=== PATIENT | male | born 1945 | race Caucasian/White ===

== ENCOUNTER 2017-09-07 15:43 | Emergency (ER) | payer MEDICARE, OTHER ==
[~2017-09-07] VITALS: Ht 170.2 cm; Wt 77.1 kg
[~2017-09-07 15:43] MED LIST: ALBU90OI INH; AZIT500 PO; Augmentin 875-1 EACH PO; Bactrim Ds Tab1 EACH PO; CYCL10 PO; DOCU100 PO; HYDR1TAB94 PO; Norco 5-325 Ta1 EACH PO; PANT40 PO; Percocet 5-3251 EACH PO; Vibramycin100 MG PO
[2017-09-07] MEDS ORDERED: ATHLETE S FOOT TOP (18:03)
[2018-01-10] MEDS ORDERED: ALBU90OI INH (10:02)
[2018-01-10] MEDS ORDERED: CHOL10002 PO (10:04)
[2018-02-10] MEDS ORDERED: Prednisone20 MG PO (19:08)
[2018-02-10] MEDS ORDERED: Norco 5-325 Ta1 EACH PO (19:08)
[2018-05-22] MEDS ORDERED: META800 (17:01)
[2018-05-22] MEDS ORDERED: LISI20 PO (17:02)
[2018-05-22] MEDS ORDERED: Prinivil10 MG PO (18:05)
[2018-06-16] MEDS ORDERED: ASPI81CH PO (19:44)
[2018-06-16] MEDS ORDERED: CELE100 PO (19:45)
[2018-06-16] MEDS ORDERED: Percocet 5-3251 EACH PO (19:53)
[2018-07-02] MEDS ORDERED: DOCU100 (16:55)
== END 2017-09-07 18:04 | disposition home or self-care (01) ==
LOC: ER 15:43
DX: B35.3 Tinea pedis (principal); F17.200 Nicotine dependence, unspecified, uncomplicated
CPT/HCPCS: 73630; 99283

== ENCOUNTER 2017-12-13 14:50 | Emergency (ER) | payer MEDICARE, OTHER ==
[~2017-12-13] VITALS: Ht 170.2 cm; Wt 68.0 kg
[~2017-12-13 14:50] MED LIST changes: +ATHLETE S FOOT TOP
[2017-12-13] MEDS ORDERED: IBUP600 PO (15:43)
[2017-12-13] MEDS ORDERED: Bactrim Ds Tab1 EACH PO (15:43)
== END 2017-12-13 15:49 | disposition home or self-care (01) ==
LOC: ER 14:50
DX: L02.412 Cutaneous abscess of left axilla (principal); Z87.891 Personal history of nicotine dependence
CPT/HCPCS: 10061; 99283

== ENCOUNTER 2018-01-12 07:20 | Day surgery (SDC) | payer MEDICARE, OTHER ==
[~2018-01-12] VITALS: Ht 170.2 cm; Wt 62.6 kg
[~2018-01-12 07:20] MED LIST changes: +CHOL10002 PO; +IBUP600 PO
== END 2018-01-12 23:00 | disposition home or self-care (01) ==
LOC: ORSCMMR 07:20 → ORD 10:00 → ORSCMMR 23:00
PROVIDERS: Surgery
PROC: 0YU50JZ Supplement Right Inguinal Region with Synthetic Substitute, Open Approach (ICD-10-PCS; principal; 2018-01-12 10:00)
DX: K40.90 Unilateral inguinal hernia, without obstruction or gangrene, not specified as recurrent (principal); Z87.891 Personal history of nicotine dependence; Z79.899 Other long term (current) drug therapy
CPT/HCPCS: 93005; 93010; C1781; J0690; J2250; J2370; J3010; J7120

== ENCOUNTER 2018-03-21 02:00 | Emergency (ER) | payer MEDICARE, OTHER ==
[~2018-03-21] VITALS: Ht 172.7 cm; Wt 63.5 kg
[~2018-03-21 02:00] MED LIST changes: +Prednisone20 MG PO
[2018-03-21 02:32] LABS: BASOPHILS ABSOLUTE AUTO 0.07 K/mm3 (0.00-0.23); BASOPHILS PERCENT AUTO 1 % (0-2); EOSINOPHILS ABSOLUTE AUTO 0.37 K/mm3 (0.00-0.68); EOSINOPHILS PERCENT AUTO 3 % (0-6); Hematocrit 41.2 % (37.0-53.0); Hemoglobin 14.1 g/dL (13.5-17.5); IMMATURE GRAN ABSOLUTE AUTO 0.07 K/mm3 (0.00-0.10); IMMATURE GRAN PERCENT AUTO 1 % (0-1); LYMPHOCYTES ABSOLUTE AUTO 3.06 K/mm3 (0.84-5.20); LYMPHOCYTES PERCENT AUTO 22 % (21-46); MONOCYTES ABSOLUTE AUTO 1.41 K/mm3 (0.16-1.47); MONOCYTES PERCENT AUTO 10 % (4-13); Mean Corpuscular HGB 29.5 pg (26.0-34.0); Mean Corpuscular HGB Conc 34.2 g/dL (31.5-36.5); Mean Corpuscular Volume 86 fL (80-100); Mean Platelet Volume 9.7 fL (9.1-12.4); NEUTROPHILS PERCENT AUTO 64 % (41-73); Platelet Count 322 K/mm3 (150-400); RDW Coefficient Variation 14.5 % (11.7-14.2); RDW Standard Deviation 46.2 fL (35.1-46.3); Red Blood Cell Count 4.78 M/mm3 (4.30-5.90); White Blood Cell Count 13.68 K/mm3 (4.00-11.30)
[2018-03-21 02:55] LABS: Alanine Aminotransfer (ALT/SGP 17 U/L (12-78); Albumin, Blood 3.7 g/dL (3.4-5.0); Albumin/Globulin Ratio 1.2 (0.8-1.8); Alk Phos 92 U/L (50-136); Anion Gap 9 mmol/L (6-16); Aspartate Aminotrans (AST/SGOT 15 U/L (12-37); Bilirubin, Total 0.8 mg/dL (0.1-1.0); Blood Urea Nitrogen 16 mg/dL (8-24); CO2, Blood 25 mmol/L (21-32); Chloride, Blood 105 mmol/L (98-108); Globulin, Blood 3.2 g/dL (2.2-4.0); Glomerular Filtration Rate >60 (60-); Glucose, Blood 96 mg/dL (70-99); Potassium, Blood 3.6 mmol/L (3.5-5.5); Sodium, Blood 139 mmol/L (136-145); Total Protein, Blood 6.9 g/dL (6.4-8.2); Troponin I <0.015 ng/mL (0.000-0.040)
[2018-03-21] MEDS ORDERED: COMBIVENT RESPIM4 GM (02:55)
== END 2018-03-21 04:38 | disposition home or self-care (01) ==
LOC: ER 02:00
PROVIDERS: Emergency Medicine
DX: J44.1 Chronic obstructive pulmonary disease with (acute) exacerbation (principal); Z79.899 Other long term (current) drug therapy; Z87.891 Personal history of nicotine dependence
CPT/HCPCS: 36415; 71046; 80053; 84484; 85025; 93005; 93010; 99285-25

== ENCOUNTER 2018-05-27 10:07 | Emergency (ER) | payer MEDICARE, OTHER ==
[~2018-05-27] VITALS: Ht 170.2 cm; Wt 65.8 kg
[~2018-05-27 10:07] MED LIST changes: +COMBIVENT RESPIM4 GM; +LISI20; +META800; +Prinivil10 MG PO
[2018-05-27] MEDS ORDERED: Bactrim Ds Tab1 EACH PO (10:48)
[2018-05-27] MEDS ORDERED: Keflex500 MG PO (10:48)
== END 2018-05-27 10:55 | disposition home or self-care (01) ==
LOC: ER 10:07
DX: L03.211 Cellulitis of face (principal); I10 Essential (primary) hypertension; Z87.891 Personal history of nicotine dependence; Z79.899 Other long term (current) drug therapy
CPT/HCPCS: 99283

== ENCOUNTER 2018-06-06 18:51 | Emergency (ER) | payer MEDICARE, OTHER ==
[~2018-06-06] VITALS: Ht 170.2 cm; Wt 65.8 kg
[~2018-06-06 18:51] MED LIST changes: +Keflex500 MG PO; -LISI20; +LISI20 PO
[2018-06-06 19:29] LABS: BASOPHILS ABSOLUTE AUTO 0.07 K/mm3 (0.00-0.23); BASOPHILS PERCENT AUTO 1 % (0-2); EOSINOPHILS ABSOLUTE AUTO 0.28 K/mm3 (0.00-0.68); EOSINOPHILS PERCENT AUTO 3 % (0-6); Hematocrit 39.1 % (37.0-53.0); Hemoglobin 13.4 g/dL (13.5-17.5); IMMATURE GRAN ABSOLUTE AUTO 0.04 K/mm3 (0.00-0.10); IMMATURE GRAN PERCENT AUTO 0 % (0-1); LYMPHOCYTES ABSOLUTE AUTO 1.44 K/mm3 (0.84-5.20); LYMPHOCYTES PERCENT AUTO 15 % (21-46); MONOCYTES ABSOLUTE AUTO 1.08 K/mm3 (0.16-1.47); MONOCYTES PERCENT AUTO 11 % (4-13); Mean Corpuscular HGB 29.8 pg (26.0-34.0); Mean Corpuscular HGB Conc 34.3 g/dL (31.5-36.5); Mean Corpuscular Volume 87 fL (80-100); Mean Platelet Volume 8.7 fL (9.1-12.4); NEUTROPHILS ABSOLUTE AUTO 6.75 K/mm3 (1.96-9.15); NEUTROPHILS PERCENT AUTO 70 % (41-73); Platelet Count 416 K/mm3 (150-400); RDW Coefficient Variation 14.6 % (11.7-14.2); RDW Standard Deviation 46.8 fL (35.1-46.3); White Blood Cell Count 9.66 K/mm3 (4.00-11.30)
[2018-06-06 19:53] LABS: Alanine Aminotransfer (ALT/SGP 23 U/L (12-78); Albumin, Blood 3.6 g/dL (3.4-5.0); Alk Phos 101 U/L (50-136); Anion Gap 7 mmol/L (6-16); Aspartate Aminotrans (AST/SGOT 16 U/L (12-37); Bilirubin, Total 0.3 mg/dL (0.1-1.0); Blood Urea Nitrogen 15 mg/dL (8-24); Bun/Creatinine Ratio 17.2 (12.0-20.0); CO2, Blood 24 mmol/L (21-32); Chloride, Blood 103 mmol/L (98-108); Creatinine, Blood 0.87 mg/dL (0.60-1.20); Globulin, Blood 3.5 g/dL (2.2-4.0); Glomerular Filtration Rate >60 (60-); Glucose, Blood 108 mg/dL (70-99); Potassium, Blood 4.3 mmol/L (3.5-5.5); Sodium, Blood 134 mmol/L (136-145); Total Protein, Blood 7.1 g/dL (6.4-8.2)
[2018-06-06] MEDS ORDERED: Norco 7.5-3251 EACH PO (22:56)
[2018-06-06] MEDS ORDERED: ASPI325 PO (22:56)
== END 2018-06-06 23:39 | disposition home or self-care (01) ==
LOC: ER 18:51
PROVIDERS: Physician Assistant
DX: I77.9 Disorder of arteries and arterioles, unspecified (principal); J44.9 Chronic obstructive pulmonary disease, unspecified; Z87.891 Personal history of nicotine dependence; Z79.899 Other long term (current) drug therapy; Z79.51 Long term (current) use of inhaled steroids
CPT/HCPCS: 36415; 73630; 80053; 85025; 93926; 96374; 99284-25; J3010

== ENCOUNTER 2018-07-13 08:20 | Emergency (ER) | payer MEDICARE, OTHER ==
[~2018-07-13] VITALS: Ht 170.2 cm; Wt 61.2 kg
[~2018-07-13 08:20] MED LIST changes: +ASPI325 PO; +ASPI81CH PO; +CELE100 PO; +DOCU100; +Norco 7.5-3251 EACH PO
[2018-07-13] MEDS ORDERED: OXYC5 (08:37)
[2018-07-13] MEDS ORDERED: CELE100 PO (08:37)
[2018-07-13] MEDS ORDERED: Prinivil10 MG PO (08:37)
[2018-07-13] MEDS ORDERED: TAMS.4ER PO (08:55)
[2018-07-13 09:02] LABS: BASOPHILS ABSOLUTE AUTO 0.06 K/mm3 (0.00-0.23); BASOPHILS PERCENT AUTO 1 % (0-2); EOSINOPHILS ABSOLUTE AUTO 0.25 K/mm3 (0.00-0.68); EOSINOPHILS PERCENT AUTO 2 % (0-6); Hematocrit 37.5 % (37.0-53.0); Hemoglobin 12.3 g/dL (13.5-17.5); IMMATURE GRAN ABSOLUTE AUTO 0.05 K/mm3 (0.00-0.10); IMMATURE GRAN PERCENT AUTO 0 % (0-1); LYMPHOCYTES ABSOLUTE AUTO 1.64 K/mm3 (0.84-5.20); LYMPHOCYTES PERCENT AUTO 14 % (21-46); MONOCYTES ABSOLUTE AUTO 0.81 K/mm3 (0.16-1.47); MONOCYTES PERCENT AUTO 7 % (4-13); Mean Corpuscular HGB 29.8 pg (26.0-34.0); Mean Corpuscular HGB Conc 32.8 g/dL (31.5-36.5); Mean Corpuscular Volume 91 fL (80-100); NEUTROPHILS ABSOLUTE AUTO 8.56 K/mm3 (1.96-9.15); NEUTROPHILS PERCENT AUTO 75 % (41-73); Platelet Count 445 K/mm3 (150-400); RDW Coefficient Variation 15.3 % (11.7-14.2); Red Blood Cell Count 4.13 M/mm3 (4.30-5.90); White Blood Cell Count 11.37 K/mm3 (4.00-11.30)
[2018-07-13 09:16] LABS: Alanine Aminotransfer (ALT/SGP 20 U/L (12-78); Albumin, Blood 3.2 g/dL (3.4-5.0); Albumin/Globulin Ratio 0.9 (0.8-1.8); Alk Phos 94 U/L (50-136); Anion Gap 8 mmol/L (6-16); Aspartate Aminotrans (AST/SGOT 19 U/L (12-37); Bilirubin, Total 0.5 mg/dL (0.1-1.0); Blood Urea Nitrogen 10 mg/dL (8-24); Bun/Creatinine Ratio 12.9 (12.0-20.0); CO2, Blood 27 mmol/L (21-32); Chloride, Blood 105 mmol/L (98-108); Creatinine, Blood 0.78 mg/dL (0.60-1.20); Globulin, Blood 3.5 g/dL (2.2-4.0); Glomerular Filtration Rate >60 (60-); Glucose, Blood 105 mg/dL (70-99); Potassium, Blood 4.2 mmol/L (3.5-5.5); Sodium, Blood 140 mmol/L (136-145); Total Protein, Blood 6.7 g/dL (6.4-8.2)
[2018-07-13] MEDS ORDERED: Bactrim Ds Tab1 EACH PO (09:28)
[2018-07-13] MEDS ORDERED: Mupirocin22 GM TOP (09:28)
== END 2018-07-13 10:07 | disposition home or self-care (01) ==
LOC: ER 08:20
PROVIDERS: Physician Assistant
DX: T81.30XA Disruption of wound, unspecified, initial encounter (principal); F17.200 Nicotine dependence, unspecified, uncomplicated
CPT/HCPCS: 80053; 85025; 99283

== ENCOUNTER 2018-09-04 13:17 | Emergency (ER) | payer MEDICARE, OTHER ==
[~2018-09-04] VITALS: Ht 170.2 cm; Wt 63.5 kg
[~2018-09-04 13:17] MED LIST changes: +Mupirocin22 GM TOP; +OXYC5; +TAMS.4ER PO
[2018-09-04] MEDS ORDERED: CYCL10 PO (13:46)
[2018-09-04] MEDS ORDERED: NEOPOLHCSU RIGHTEAR (15:03)
== END 2018-09-04 15:27 | disposition home or self-care (01) ==
LOC: ER 13:17
DX: H60.91 Unspecified otitis externa, right ear (principal); I10 Essential (primary) hypertension; R22.42 Localized swelling, mass and lump, left lower limb; N40.0 Benign prostatic hyperplasia without lower urinary tract symptoms; I73.9 Peripheral vascular disease, unspecified; Z88.6 Allergy status to analgesic agent; Z98.890 Other specified postprocedural states; Z87.891 Personal history of nicotine dependence; Z89.422 Acquired absence of other left toe(s)
CPT/HCPCS: 93971; 99283-25

== ENCOUNTER 2018-09-07 09:16 | Emergency (ER) | payer MEDICARE, OTHER ==
[~2018-09-07] VITALS: Ht 170.2 cm; Wt 63.5 kg
[~2018-09-07 09:16] MED LIST changes: +NEOPOLHCSU RIGHTEAR
[2018-09-07] MEDS ORDERED: Augmentin 875-1 EACH PO (11:25)
[2018-09-07] MEDS ORDERED: Bactrim Ds Tab1 EACH PO (11:25)
== END 2018-09-07 11:30 | disposition home or self-care (01) ==
LOC: ER 09:16
DX: L03.213 Periorbital cellulitis (principal); H60.91 Unspecified otitis externa, right ear; Z87.891 Personal history of nicotine dependence
CPT/HCPCS: 36415; 70481; 99283-25; Q9967

== ENCOUNTER 2018-10-26 15:53 | Emergency (ER) | payer MEDICARE, OTHER ==
[~2018-10-26] VITALS: Ht 170.2 cm; Wt 65.8 kg
[2018-10-26] MEDS ORDERED: FISH OIL 1,0001 EAC1 PO (16:21)
[2018-10-26] MEDS ORDERED: Bactrim Ds Tab1 EACH PO (16:51)
== END 2018-10-26 16:53 | disposition home or self-care (01) ==
LOC: ER 15:53
DX: L02.411 Cutaneous abscess of right axilla (principal); I10 Essential (primary) hypertension; Z88.6 Allergy status to analgesic agent; Z79.899 Other long term (current) drug therapy; Z87.891 Personal history of nicotine dependence

== ENCOUNTER 2018-11-18 17:00 | Emergency (ER) | payer MEDICARE, OTHER ==
[~2018-11-18] VITALS: Ht 170.2 cm; Wt 61.2 kg
[~2018-11-18 17:00] MED LIST changes: +FISH OIL 1,0001 EAC1 PO
[2018-11-18] MEDS ORDERED: OMEPRAZOLE20 MG PO (17:46)
== END 2018-11-18 18:17 | disposition home or self-care (01) ==
LOC: ER 17:00
DX: R10.31 Right lower quadrant pain (principal); Z88.8 Allergy status to other drugs, medicaments and biological substances; Z79.899 Other long term (current) drug therapy; K21.9 Gastro-esophageal reflux disease without esophagitis; Z87.891 Personal history of nicotine dependence
CPT/HCPCS: 99283

== ENCOUNTER 2019-02-23 12:05 | Inpatient (IN) | payer MEDICARE, OTHER ==
[~2019-02-23] VITALS: Ht 167.6 cm; Wt 61.2 kg
[~2019-02-23 12:05] MED LIST changes: +HYDHCL25 PO; +OMEPRAZOLE20 MG PO; +TRIA15CR3 TOP
[2019-02-23 12:58] LABS: Hemoglobin 13.8 g/dL (13.5-17.5); Mean Corpuscular HGB 29.9 pg (26.0-34.0); Mean Corpuscular HGB Conc 33.7 g/dL (31.5-36.5); Mean Corpuscular Volume 89 fL (80-100); Mean Platelet Volume 10.2 fL (9.1-12.4); Platelet Count 269 K/mm3 (150-400); RDW Standard Deviation 48.9 fL (35.1-46.3); Red Blood Cell Count 4.61 M/mm3 (4.30-5.90); White Blood Cell Count 37.83 K/mm3 (4.00-11.30)
[2019-02-23 13:14] LABS: Alanine Aminotransfer (ALT/SGP 42 U/L (12-78); Albumin, Blood 3.3 g/dL (3.4-5.0); Alk Phos 97 U/L (50-136); Anion Gap 6 mmol/L (6-16); Aspartate Aminotrans (AST/SGOT 45 U/L (12-37); Blood Urea Nitrogen 15 mg/dL (8-24); CO2, Blood 25 mmol/L (21-32); Chloride, Blood 103 mmol/L (98-108); Creatinine, Blood 0.79 mg/dL (0.60-1.20); Globulin, Blood 3.3 g/dL (2.2-4.0); Glomerular Filtration Rate >60 (60-); Glucose, Blood 93 mg/dL (70-99); Potassium, Blood 4.4 mmol/L (3.5-5.5); Sodium, Blood 134 mmol/L (136-145); Total Protein, Blood 6.6 g/dL (6.4-8.2)
[2019-02-23 14:09] LABS: BAND PERCENT MAN 1 % (0-8); BASOPHILS PERCENT MAN 0 % (0-2); EOSINOPHILS PERCENT MAN 0 % (0-6); LYMPHOCYTES ABSOLUTE MAN 1.51 K/mm3 (0.84-5.20); LYMPHOCYTES PERCENT MAN 4 % (21-46); MONOCYTES ABSOLUTE MAN 1.51 K/mm3 (0.16-1.47); MONOCYTES PERCENT MAN 4 % (4-13); SEG NEUTROPHILS PERCENT MAN 91 % (41-73); TOTAL CELLS COUNTED 100
[2019-02-23 14:55] LABS: Source, Urine Clean Catch
[2019-02-23 15:04] LABS: Bilirubin, Urine Neg (Neg); Blood, Urine Neg (Neg); Glucose Qualitative, Urine Neg (Neg); Ketones, Urine Neg (Neg); Leukocyte Esterase, Urine Neg (Neg); Nitrite, Urine Neg (Neg); Protein, Urine 1+ (Neg); Specific Gravity, Urine 1.015 (1.003-1.022); Urobilinogen, Urine NORM (Normal)
[2019-02-23 15:12] LABS: Appearance, Urine Clear (Clear); Color, Urine Yellow (P-Yellow)
--- NOTE | 2019-02-23 18:49 | NUR ---
PT AOX4 AND COOPERATIVE OF CARE. PT ARRIVED WITH REDNESS TO L LEG. LINES DRAWN TO FAITH REDNESS. LEG IS HOT TO THE TOUCH, BUT NO EDEMA AND PULSE FAINT AND THREADY. PT HAD FEVER OF 101.4 AND TYLENOL GIVEN PER EMAR. PT WILL BE MONITOR UNTIL SHIFT CHANGE.
[2019-02-24 05:26] LABS: BASOPHILS ABSOLUTE AUTO 0.06 K/mm3 (0.00-0.23); BASOPHILS PERCENT AUTO 0 % (0-2); EOSINOPHILS ABSOLUTE AUTO 0.04 K/mm3 (0.00-0.68); EOSINOPHILS PERCENT AUTO 0 % (0-6); Hematocrit 37.9 % (37.0-53.0); Hemoglobin 12.6 g/dL (13.5-17.5); IMMATURE GRAN ABSOLUTE AUTO 0.16 K/mm3 (0.00-0.10); IMMATURE GRAN PERCENT AUTO 1 % (0-1); LYMPHOCYTES ABSOLUTE AUTO 0.82 K/mm3 (0.84-5.20); LYMPHOCYTES PERCENT AUTO 4 % (21-46); MONOCYTES PERCENT AUTO 3 % (4-13); Mean Corpuscular HGB 29.4 pg (26.0-34.0); Mean Corpuscular HGB Conc 33.2 g/dL (31.5-36.5); Mean Corpuscular Volume 89 fL (80-100); Mean Platelet Volume 10.2 fL (9.1-12.4); NEUTROPHILS ABSOLUTE AUTO 21.39 K/mm3 (1.96-9.15); NEUTROPHILS PERCENT AUTO 92 % (41-73); Platelet Count 228 K/mm3 (150-400); RDW Coefficient Variation 14.9 % (11.7-14.2); RDW Standard Deviation 48.6 fL (35.1-46.3); Red Blood Cell Count 4.28 M/mm3 (4.30-5.90); White Blood Cell Count 23.17 K/mm3 (4.00-11.30)
[2019-02-24 05:49] LABS: Anion Gap 7 mmol/L (6-16); Blood Urea Nitrogen 14 mg/dL (8-24); Bun/Creatinine Ratio 16.5 (12.0-20.0); CO2, Blood 26 mmol/L (21-32); Calcium, Blood 8.3 mg/dL (8.5-10.1); Chloride, Blood 102 mmol/L (98-108); Creatinine, Blood 0.85 mg/dL (0.60-1.20); Glomerular Filtration Rate >60 (60-); Glucose, Blood 90 mg/dL (70-99); Potassium, Blood 3.8 mmol/L (3.5-5.5); Sodium, Blood 135 mmol/L (136-145)
--- NOTE | 2019-02-24 06:49 | NUR ---
SHIFT SUMMARY: 73 Y/O MALE RESTED COMFORTABLY ALL SHIFT. PT DENIES PAIN OR NAUSEA. PT VOICED HE IS HOMELESS AND [facility] TWO YEARS (ORIGINALLY FROM [place]). PTS LEFT LEG IS RED WITH RAISED SCALLY SKIN ON WONG. PT HAPPY AND COOPERATIVE. 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 PT CONTINUOUS TO RUN LOW GRADE FEVER 100.1 AND IS RECEIVING ANCEF AND VANCOMYCIN VIA IVPB. PTS BED LOW POSITION, CALL LIGHT AT SIDE.
[2019-02-24 16:35] LABS: Vancomycin, Trough 9.1 ug/mL (5.0-10.0)
--- NOTE | 2019-02-24 19:55 | NUR ---
SHIFT SUMMARY PT A&Ox4. CALM AND COOPERATIVE WITH CARE. PT RESTING IN BED DURING SHIFT. 1 PERSON ASSIST. PT REPORTS CHRONIC BACK PAIN, DENIES NEED FOR MEDICATION. PT REPOSITIONED SELF IN BED. PT REPORTS FEELING WEAK AND TIRED. PT DENIES SOB, >92% ON RA, LS DIM. PT DENIES NAUSEA. PT RECEIVING IV ANTIBIOTICS. LLE 1+ PITTING EDEMA, RED AND SPLOTCHY, MEDICATED WITH KENALOG. VSS. NO OTHER ACUTE CHANGES NOTED DURING SHIFT. REPORT GIVEN TO ONCOMING RN.
--- NOTE | 2019-02-25 06:20 | NUR ---
SHIFT SUMMARY: 73 Y/O MALE LEFT LOWER LEG HAS MORE REDNESS NOTED, HOT TO TOUCH ENTIRE LENGTH. PT ABLE TO BEAR WEIGHT LEFT LEG, FOOT PUSH STRONG. PT DENIES PAIN OR NAUSEA. PT WASHED UP WITH BASIN WATER LAST NIGHT WITH SOAP. PT VOICED HE FELT MUCH BETTER. PTS BED LOW POSITION, CALL LIGHT AT SIDE.
[2019-02-25 07:19] LABS: BASOPHILS ABSOLUTE AUTO 0.06 K/mm3 (0.00-0.23); BASOPHILS PERCENT AUTO 0 % (0-2); EOSINOPHILS ABSOLUTE AUTO 0.36 K/mm3 (0.00-0.68); EOSINOPHILS PERCENT AUTO 2 % (0-6); Hematocrit 36.4 % (37.0-53.0); Hemoglobin 12.3 g/dL (13.5-17.5); IMMATURE GRAN ABSOLUTE AUTO 0.09 K/mm3 (0.00-0.10); IMMATURE GRAN PERCENT AUTO 1 % (0-1); LYMPHOCYTES ABSOLUTE AUTO 0.91 K/mm3 (0.84-5.20); LYMPHOCYTES PERCENT AUTO 6 % (21-46); MONOCYTES ABSOLUTE AUTO 0.95 K/mm3 (0.16-1.47); MONOCYTES PERCENT AUTO 6 % (4-13); Mean Corpuscular HGB 29.7 pg (26.0-34.0); Mean Corpuscular HGB Conc 33.8 g/dL (31.5-36.5); Mean Corpuscular Volume 88 fL (80-100); NEUTROPHILS ABSOLUTE AUTO 12.81 K/mm3 (1.96-9.15); NEUTROPHILS PERCENT AUTO 84 % (41-73); Platelet Count 221 K/mm3 (150-400); RDW Coefficient Variation 14.9 % (11.7-14.2); RDW Standard Deviation 48.6 fL (35.1-46.3); Red Blood Cell Count 4.14 M/mm3 (4.30-5.90); White Blood Cell Count 15.18 K/mm3 (4.00-11.30)
[2019-02-25 07:38] LABS: Anion Gap 6 mmol/L (6-16); Blood Urea Nitrogen 12 mg/dL (8-24); Bun/Creatinine Ratio 15.4 (12.0-20.0); CO2, Blood 27 mmol/L (21-32); Calcium, Blood 8.2 mg/dL (8.5-10.1); Chloride, Blood 105 mmol/L (98-108); Creatinine, Blood 0.78 mg/dL (0.60-1.20); Glomerular Filtration Rate >60 (60-); Glucose, Blood 93 mg/dL (70-99); Potassium, Blood 3.8 mmol/L (3.5-5.5); Sodium, Blood 138 mmol/L (136-145)
--- NOTE | 2019-02-25 17:50 | NUR ---
PT HAS BEEN STABLE THIS SHIFT, MAX TEMP 99.3. PT DENIES PAIN. CONT REDNESS IN LEFT LEG WHICH PATIENT STATES IS IMPROVING. CONT IV ABX. VANCO TROUGH TO BE DRAWN TOMORROW AFTERNOON. PT UP TO CHAIR THIS AM WITH MIN ASSIST. USES URINAL INDEP. EATING AND DRINKING WELL. PLAN TO DC HOME IN 1-2 DAYS PER HOSPITALIST IF CONTINUES TO IMPROVE.
--- NOTE | 2019-02-26 04:26 | NUR ---
SHIFT SUMMARY: 73 Y/O MALE RESTED COMFORTABLY ALL SHIFT. PT ABLE TO STAND AND BEAR WEIGHT LLE AND AMBULATE BATHROOM AND BACK WITH GAIT SLOW AND STEADY. PTS LEFT LOWER LEG STILL WARM TO TOUCH WITH EXCORIATED REDNESS FROM UPPER THIGHT TO LOWER CALF NOTED (NO OPEN WOUNDS NOTED). PT DENIES PAIN OR NAUSEA. PT EAGER TO RETURN [facility] (LIVED HERE FOR TWO YEARS). PT CONTINUES TO RECEIVE VANCOMYCIN AND ANCEF IVPB AND IN CONTACT PRECAUTIONS. PTS BED LOW POSITION, CALL LIGHT AT SIDE.
--- NOTE | 2019-02-26 13:06 | NUR ---
SCHEDULED RIDE WITH [facility] TO [facility] IN [place] UPON DISCHARGE.
[2019-02-26] MEDS ORDERED: ACET500 PO (13:43)
[2019-02-26] MEDS ORDERED: CEPH500 PO (13:44)
[2019-02-26] MEDS ORDERED: Vsl#3 Capsule1 EACH PO (13:44)
--- NOTE | 2019-02-26 14:05 | NUR ---
DISCHARGE PT DISCHARGED VIA W/C WITH TRANSLINK TO [facility]. IV DISCONTINUED INTACT. PT UNDERSTANDS IMPORTANCE OF TAKING MEDICATIONS PRESCRIBED AND FOLLOWING UP WITH PCP DIRECTED. ALL BELONGINGS SENT WITH PT AT TIME OF DISCHARGE.
== END 2019-02-26 14:25 | disposition home or self-care (01) | DRG 872 ==
LOC: ER 12:05 → MEDS 15:05 → ENPENDDIS 02-26 11:14 → MEDS 02-26 14:25
PROVIDERS: Emergency Medicine; Internal Medicine; ADMIT Internal Medicine
DX: A41.9 Sepsis, unspecified organism (principal); L03.116 Cellulitis of left lower limb; I87.2 Venous insufficiency (chronic) (peripheral); J44.9 Chronic obstructive pulmonary disease, unspecified; Z66 Do not resuscitate; Z59.0 Homelessness; I10 Essential (primary) hypertension; I73.9 Peripheral vascular disease, unspecified; K21.9 Gastro-esophageal reflux disease without esophagitis; Z87.891 Personal history of nicotine dependence
CPT/HCPCS: 36415; 71046; 80048; 80053; 80202; 83605; 85025; 87040; 87081; 93971; 94640; 94760; 96365; 96375; 99282; 99284-25; J0690; J1650; J3370; J7050; J7120

== ENCOUNTER 2019-03-20 13:48 | Emergency (ER) | payer MEDICARE, OTHER ==
[~2019-03-20] VITALS: Ht 170.2 cm; Wt 63.5 kg
[~2019-03-20 13:48] MED LIST changes: +ACET500 PO; +CEPH500 PO; +Vsl#3 Capsule1 EACH PO
[2019-03-20] MEDS ORDERED: HYDHCL10EL PO (14:34)
== END 2019-03-20 15:13 | disposition home or self-care (01) ==
LOC: ER 13:48
DX: L82.1 Other seborrheic keratosis (principal); Z88.8 Allergy status to other drugs, medicaments and biological substances; Z79.899 Other long term (current) drug therapy; Z87.891 Personal history of nicotine dependence
CPT/HCPCS: 99283

== ENCOUNTER → 2019-04-10 | Outpatient (CLI) | payer MEDICARE, OTHER ==
[~2019-04-10] MED LIST changes: +FISH OIL 1,0001 EACH PO; +HYDHCL10EL PO
[2019-04-10 11:31] LABS: BASOPHILS ABSOLUTE AUTO 0.08 K/mm3 (0.00-0.23); BASOPHILS PERCENT AUTO 1 % (0-2); EOSINOPHILS ABSOLUTE AUTO 0.66 K/mm3 (0.00-0.68); EOSINOPHILS PERCENT AUTO 6 % (0-6); Hematocrit 43.1 % (37.0-53.0); Hemoglobin 14.9 g/dL (13.5-17.5); IMMATURE GRAN ABSOLUTE AUTO 0.06 K/mm3 (0.00-0.10); IMMATURE GRAN PERCENT AUTO 1 % (0-1); LYMPHOCYTES ABSOLUTE AUTO 1.99 K/mm3 (0.84-5.20); LYMPHOCYTES PERCENT AUTO 18 % (21-46); MONOCYTES ABSOLUTE AUTO 0.97 K/mm3 (0.16-1.47); MONOCYTES PERCENT AUTO 9 % (4-13); Mean Corpuscular HGB 29.7 pg (26.0-34.0); Mean Corpuscular HGB Conc 34.6 g/dL (31.5-36.5); Mean Corpuscular Volume 86 fL (80-100); Mean Platelet Volume 10.1 fL (9.1-12.4); NEUTROPHILS ABSOLUTE AUTO 7.26 K/mm3 (1.96-9.15); NEUTROPHILS PERCENT AUTO 66 % (41-73); Platelet Count 316 K/mm3 (150-400); RDW Coefficient Variation 15.7 % (11.7-14.2); RDW Standard Deviation 49.1 fL (35.1-46.3); Red Blood Cell Count 5.01 M/mm3 (4.30-5.90); White Blood Cell Count 11.02 K/mm3 (4.00-11.30)
[2019-04-10 11:46] LABS: Alanine Aminotransfer (ALT/SGP 24 U/L (12-78); Albumin, Blood 3.6 g/dL (3.4-5.0); Albumin/Globulin Ratio 1.1 (0.8-1.8); Alk Phos 100 U/L (40-126); Anion Gap 10 mmol/L (6-16); Aspartate Aminotrans (AST/SGOT 22 U/L (12-37); Bilirubin, Total 0.5 mg/dL (0.1-1.0); Blood Urea Nitrogen 16 mg/dL (8-24); CO2, Blood 27 mmol/L (21-32); Calcium, Blood 9.6 mg/dL (8.5-10.1); Chloride, Blood 105 mmol/L (98-108); Globulin, Blood 3.2 g/dL (2.2-4.0); Glomerular Filtration Rate >60 (60-); Glucose, Blood 91 mg/dL (70-99); Potassium, Blood 4.1 mmol/L (3.5-5.5); Sodium, Blood 142 mmol/L (136-145); Total Protein, Blood 6.8 g/dL (6.4-8.2)
== END ==
LOC: LAB EV 11:23 → LAB SHORT 11:23
PROVIDERS: Emergency Medicine
DX: R21 Rash and other nonspecific skin eruption (principal)
CPT/HCPCS: 80053; 85025; 85651

== ENCOUNTER 2019-05-09 03:23 | Emergency (ER) | payer MEDICARE, OTHER ==
[~2019-05-09] VITALS: Ht 170.2 cm; Wt 62.6 kg
[~2019-05-09 03:23] MED LIST changes: -FISH OIL 1,0001 EACH PO
[2019-05-09] MEDS ORDERED: Prinivil10 MG PO (03:33)
[2019-05-09] MEDS ORDERED: FISH OIL 1,0001 EACH PO (03:33)
[2019-05-09] MEDS ORDERED: CYCL10 PO (03:33)
[2019-05-09 03:52] LABS: BASOPHILS PERCENT AUTO 1 % (0-2); EOSINOPHILS ABSOLUTE AUTO 1.45 K/mm3 (0.00-0.68); EOSINOPHILS PERCENT AUTO 11 % (0-6); Hematocrit 40.4 % (37.0-53.0); Hemoglobin 13.6 g/dL (13.5-17.5); IMMATURE GRAN ABSOLUTE AUTO 0.06 K/mm3 (0.00-0.10); IMMATURE GRAN PERCENT AUTO 0 % (0-1); LYMPHOCYTES ABSOLUTE AUTO 2.07 K/mm3 (0.84-5.20); LYMPHOCYTES PERCENT AUTO 15 % (21-46); MONOCYTES ABSOLUTE AUTO 1.35 K/mm3 (0.16-1.47); MONOCYTES PERCENT AUTO 10 % (4-13); Mean Corpuscular HGB 29.6 pg (26.0-34.0); Mean Corpuscular HGB Conc 33.7 g/dL (31.5-36.5); Mean Corpuscular Volume 88 fL (80-100); Mean Platelet Volume 9.7 fL (9.1-12.4); NEUTROPHILS ABSOLUTE AUTO 8.68 K/mm3 (1.96-9.15); NEUTROPHILS PERCENT AUTO 63 % (41-73); Platelet Count 313 K/mm3 (150-400); RDW Coefficient Variation 15.7 % (11.7-14.2); RDW Standard Deviation 50.5 fL (35.1-46.3); White Blood Cell Count 13.71 K/mm3 (4.00-11.30)
[2019-05-09 04:10] LABS: Alanine Aminotransfer (ALT/SGP 20 U/L (12-78); Albumin, Blood 3.2 g/dL (3.4-5.0); Albumin/Globulin Ratio 0.9 (0.8-1.8); Alk Phos 86 U/L (50-136); Anion Gap 6 mmol/L (6-16); Aspartate Aminotrans (AST/SGOT 22 U/L (12-37); Bilirubin, Total 0.4 mg/dL (0.1-1.0); Blood Urea Nitrogen 12 mg/dL (8-24); Bun/Creatinine Ratio 16.6 (12.0-20.0); CO2, Blood 27 mmol/L (21-32); Calcium, Blood 8.7 mg/dL (8.5-10.1); Chloride, Blood 109 mmol/L (98-108); Creatinine, Blood 0.72 mg/dL (0.60-1.20); Globulin, Blood 3.4 g/dL (2.2-4.0); Glomerular Filtration Rate >60 (60-); Glucose, Blood 102 mg/dL (70-99); Potassium, Blood 4.3 mmol/L (3.5-5.5); Sodium, Blood 142 mmol/L (136-145); Total Protein, Blood 6.6 g/dL (6.4-8.2)
== END 2019-05-09 06:17 | disposition home or self-care (01) ==
LOC: ER 03:23
PROVIDERS: Emergency Medicine
DX: R10.31 Right lower quadrant pain (principal); R05 Cough; I10 Essential (primary) hypertension; L40.9 Psoriasis, unspecified; Z87.891 Personal history of nicotine dependence; Z88.5 Allergy status to narcotic agent; Z88.8 Allergy status to other drugs, medicaments and biological substances; Z79.899 Other long term (current) drug therapy
CPT/HCPCS: 74176; 80053; 85025; 96374; 99284-25; J1170

== ENCOUNTER 2019-05-12 22:55 | Emergency (ER) | payer MEDICARE, OTHER ==
[~2019-05-12] VITALS: Ht 170.2 cm; Wt 63.5 kg
[~2019-05-12 22:55] MED LIST changes: +FISH OIL 1,0001 EACH PO
[2019-05-13] MEDS ORDERED: CEPH500 PO (01:15)
== END 2019-05-13 01:36 | disposition home or self-care (01) ==
LOC: ER 22:55
DX: N49.8 Inflammatory disorders of other specified male genital organs (principal); Z88.5 Allergy status to narcotic agent; Z88.6 Allergy status to analgesic agent; F17.200 Nicotine dependence, unspecified, uncomplicated; Z79.899 Other long term (current) drug therapy
CPT/HCPCS: 99282

== ENCOUNTER → 2019-06-19 | Outpatient (CLI) | payer MEDICARE, OTHER | END | disposition home or self-care (01) | LOC: PLD 07:24 → LAB SHORT 07:24 | DX: L30.8 Other specified dermatitis (principal) | CPT/HCPCS: 88305; 88312 ==

== ENCOUNTER 2019-11-05 16:04 | Inpatient (IN) | payer MEDICARE, OTHER ==
[~2019-11-05] VITALS: Ht 170.2 cm; Wt 61.2 kg
[~2019-11-05 16:04] MED LIST changes: +Aspirin EC81 MG PO
[2019-11-05 17:39] LABS: BASOPHILS ABSOLUTE AUTO 0.05 K/mm3 (0.00-0.23); BASOPHILS PERCENT AUTO 0 % (0-2); EOSINOPHILS ABSOLUTE AUTO 0.03 K/mm3 (0.00-0.68); EOSINOPHILS PERCENT AUTO 0 % (0-6); Hematocrit 41.7 % (37.0-53.0); Hemoglobin 14.1 g/dL (13.5-17.5); IMMATURE GRAN ABSOLUTE AUTO 0.14 K/mm3 (0.00-0.10); IMMATURE GRAN PERCENT AUTO 1 % (0-1); LYMPHOCYTES ABSOLUTE AUTO 0.55 K/mm3 (0.84-5.20); LYMPHOCYTES PERCENT AUTO 3 % (21-46); MONOCYTES ABSOLUTE AUTO 0.96 K/mm3 (0.16-1.47); MONOCYTES PERCENT AUTO 4 % (4-13); Mean Corpuscular HGB 29.1 pg (26.0-34.0); Mean Corpuscular HGB Conc 33.8 g/dL (31.5-36.5); Mean Corpuscular Volume 86 fL (80-100); NEUTROPHILS ABSOLUTE AUTO 19.97 K/mm3 (1.96-9.15); NEUTROPHILS PERCENT AUTO 92 % (41-73); Platelet Count 268 K/mm3 (150-400); RDW Coefficient Variation 15.1 % (11.7-14.2); RDW Standard Deviation 47.8 fL (35.1-46.3); Red Blood Cell Count 4.85 M/mm3 (4.30-5.90)
[2019-11-05 18:09] LABS: Alanine Aminotransfer (ALT/SGP 31 U/L (12-78); Albumin, Blood 3.3 g/dL (3.4-5.0); Albumin/Globulin Ratio 0.8 (0.8-1.8); Alk Phos 106 U/L (50-136); Anion Gap 4 mmol/L (6-16); Aspartate Aminotrans (AST/SGOT 25 U/L (12-37); Bilirubin, Total 0.5 mg/dL (0.1-1.0); Blood Urea Nitrogen 17 mg/dL (8-24); CO2, Blood 28 mmol/L (21-32); Chloride, Blood 99 mmol/L (98-108); Creatinine, Blood 0.81 mg/dL (0.60-1.20); Glomerular Filtration Rate >60 (60-); Glucose, Blood 101 mg/dL (70-99); Potassium, Blood 4.2 mmol/L (3.5-5.5); Sodium, Blood 131 mmol/L (136-145); Total Protein, Blood 7.3 g/dL (6.4-8.2)
[2019-11-05 18:11] LABS: Influenza A Negative (NEGATIVE); Influenza B Negative (NEGATIVE)
[2019-11-05 23:03] LABS: Adenovirus Not Detected (NOT DETECT); Bordetella pertussis Not Detected (NOT DETECT); Chlamydophila pneumoniae Not Detected (NOT DETECT); Coronavirus 229E Not Detected (NOT DETECT); Coronavirus HKU1 Not Detected (NOT DETECT); Coronavirus NL63 Not Detected (NOT DETECT); Coronavirus OC43 Not Detected (NOT DETECT); Human Metapneumovirus Not Detected (NOT DETECT); Human Rhinovirus/Enterovirus Not Detected (NOT DETECT); Influenza A Not Detected (NOT DETECT); Influenza A/2009-H1 Not Detected (NOT DETECT); Influenza A/H1 Not Detected (NOT DETECT); Influenza A/H3 Not Detected (NOT DETECT); Influenza B Not Detected (NOT DETECT); Mycoplasma pneumoniae Not Detected (NOT DETECT); Parainfluenza Virus 1 Not Detected (NOT DETECT); Parainfluenza Virus 2 Not Detected (NOT DETECT); Parainfluenza Virus 3 Not Detected (NOT DETECT); Parainfluenza Virus 4 Not Detected (NOT DETECT); Respiratory Syncytial Virus Not Detected (NOT DETECT)
[2019-11-06 03:51] LABS: BASOPHILS ABSOLUTE AUTO 0.03 K/mm3 (0.00-0.23); BASOPHILS PERCENT AUTO 0 % (0-2); EOSINOPHILS ABSOLUTE AUTO 0.05 K/mm3 (0.00-0.68); EOSINOPHILS PERCENT AUTO 0 % (0-6); Hematocrit 37.2 % (37.0-53.0); Hemoglobin 12.4 g/dL (13.5-17.5); IMMATURE GRAN ABSOLUTE AUTO 0.12 K/mm3 (0.00-0.10); IMMATURE GRAN PERCENT AUTO 1 % (0-1); LYMPHOCYTES ABSOLUTE AUTO 0.89 K/mm3 (0.84-5.20); LYMPHOCYTES PERCENT AUTO 6 % (21-46); MONOCYTES ABSOLUTE AUTO 0.69 K/mm3 (0.16-1.47); MONOCYTES PERCENT AUTO 5 % (4-13); Mean Corpuscular HGB 28.9 pg (26.0-34.0); Mean Corpuscular HGB Conc 33.3 g/dL (31.5-36.5); Mean Corpuscular Volume 87 fL (80-100); Mean Platelet Volume 9.8 fL (9.1-12.4); NEUTROPHILS ABSOLUTE AUTO 13.55 K/mm3 (1.96-9.15); NEUTROPHILS PERCENT AUTO 88 % (41-73); Platelet Count 230 K/mm3 (150-400); RDW Coefficient Variation 15.3 % (11.7-14.2); RDW Standard Deviation 48.7 fL (35.1-46.3); Red Blood Cell Count 4.29 M/mm3 (4.30-5.90); White Blood Cell Count 15.33 K/mm3 (4.00-11.30)
[2019-11-06 03:58] LABS: Test Name COVID-19
[2019-11-06 04:10] LABS: Alanine Aminotransfer (ALT/SGP 22 U/L (12-78); Albumin, Blood 2.6 g/dL (3.4-5.0); Albumin/Globulin Ratio 0.8 (0.8-1.8); Alk Phos 80 U/L (50-136); Anion Gap 7 mmol/L (6-16); Aspartate Aminotrans (AST/SGOT 18 U/L (12-37); Bilirubin, Total 0.4 mg/dL (0.1-1.0); Blood Urea Nitrogen 19 mg/dL (8-24); Bun/Creatinine Ratio 18.3 (12.0-20.0); CO2, Blood 27 mmol/L (21-32); Calcium, Blood 7.9 mg/dL (8.5-10.1); Chloride, Blood 104 mmol/L (98-108); Creatinine, Blood 1.04 mg/dL (0.60-1.20); Globulin, Blood 3.2 g/dL (2.2-4.0); Glomerular Filtration Rate >60 (60-); Glucose, Blood 113 mg/dL (70-99); Potassium, Blood 3.7 mmol/L (3.5-5.5); Sodium, Blood 138 mmol/L (136-145); Total Protein, Blood 5.8 g/dL (6.4-8.2)
--- NOTE | 2019-11-06 05:03 | NUR ---
RECEIVED PT FROM ED, STABLE ALERT AND ORIENTED. PT WAS MOVED FROM STRETCHER TO BED, THEN GOT UP TO REMOVE PANTS. PT STATES USES CANE AT BASELINE INDEPENDENTLY. ORIENTED TO ROOM, CALL LIGHT, AND RAPID RESPONSE SYSTEM. PLAN OF CARE WAS DISCUSSED.
--- NOTE | 2019-11-06 06:44 | NUR ---
PT HAD BOUT OF NAUSEA AT 0515, WITH SMALL AMOUNT OF EMESIS, WATER. TEMP RAISED TO 100.6. ZOFRAN AND TYLENOL GIVEN TO GOOD EFFECT. PT ALSO HAS CHILLS WITH TREMORS. PT NOW SLEEPING.
--- NOTE | 2019-11-06 08:30 | NUR ---
ASSUMED CARE: REPORT RECEIVED FROM MELISSA Davidson RN. ASSUMED CARE OF THIS PT AT APPROX 0700. ON ASSESSMENT, THE PT IS A&O, PLEASANT & COOPERATIVE. HE STS HAVING A MILD HEADACHE WHICH HE BELIEVES IS CAUSED BY WEARING HIS OUT-DATED PRESCRIPTION GLASSES. LS ARE CLEAR T/O, DIM IN BASES, PT ON RA W/ O2 SATS > 92%. HE STS HAVING OCCASIONAL DRY COUGH. MONITOR SHOWS SR W/ HR 80s, OCCASIONAL PVCs NOTED. ASYMPTOMATIC HYPOTENSION W/ SBP 90s, SCHEDULED AM MEDS HELD PER PARAMETERS. PT HAS NO CURRENT C/O NAUSEA & VOIDS W/O DIFFICULTY. SKIN OVERALL CDI, OINTMENT PER EMAR FOR RASH AREA TO YOSELYN. WILL CONTINUE TO MONITOR & UPDATE NEEDED.
--- NOTE | 2019-11-06 12:30 | NUR ---
DR ASHBY: PROVIDER HAS BEEN AT BEDSIDE TO EVAL PT. NO CHANGES AT THIS TIME, CONTINUE POC & ISOLATION PRECAUTIONS UNTIL NOTIFIED IF PT IS NEGATIVE FOR COVID-19. WILL CONTINUE TO MONITOR & UPDATE NEEDED.
--- NOTE | 2019-11-06 18:15 | NUR ---
SHIFT SUMMARY: NO ACUTE CHANGES THIS SHIFT. PT REMAINS A&O, PLEASANT & COOPERATIVE. HE HAS BEEN SLEEPING QUITE OFTEN THIS SHIFT & IS RESTING SOUNDLY AT THOSE TIMES, BUT AWAKENS TO HIS NAME BEING STATED LOUDLY. LS ARE CLEAR, DIM IN BASES, PT ON RA W/ O2 SATS > 92% ON AVG. MONITOR SHOWS SR W/ HR 80s, BP STABLE, HYPOTENSION RESOLVED. NO GI COMPLAINTS, TOLERATING SMALL AMNTS PO INTAKE WELL. VOIDS INDEPENDENTLY USING URINAL AT BEDSIDE. SKIN OVERALL CDI. PER LAB, THERE WAS AN ISSUE SENDING OUT SPECIMEN FOR R/O MELENDREZ VIRUS. SPECIMEN SENT TODAY AFTER RESOLVING ISSUE & RESULTS SHOULD BE AVAILABLE TOMORROW AFTERNOON SOMETIME. WILL CONTINUE TO MONITOR & REPORT OFF TO ONCOMING RN.
--- NOTE | 2019-11-06 18:19 | NUR ---
Per admit trigger, I met with Mr. Murray to offer prayer and spiritual encouragement. He is a very quiet man who appears to have a rather gentle demeanor. He denied concerns and was appreciative of prayer/companionship. He say he has no family and has been living at [facility] for a few years. I will remain available.
--- NOTE | 2019-11-07 03:09 | NUR ---
SHIFT SUMMARY PATIENT HAS SLEPT WELL THROUGH NIGHT. PATIENT STATES HE FEELS IMPROVED, BREATHING EASIER COMPARED TO 2 DAYS AGO. STANDS AT BEDSIDE TO URINATE, NO C/O WEAKNESS, DIZZINESS. VSS. NO C/O PAIN. ASSESSMENT IS CHARTED. WILL CONTINUE TO MONITOR.
--- NOTE | 2019-11-07 07:00 | NUR ---
REPORT FROM NOC RN. ASSUMED PT CARE. PT APPEARS TO BE RESTING.
--- NOTE | 2019-11-07 08:20 | NUR ---
PT MEDICATED PER EMAR. DR MCKEON TO ROOM FOR EVAL. BREAKFAST TRAY PROVIDED. VSS. ASSESSMENT CHARTED.
--- NOTE | 2019-11-07 09:30 | NUR ---
OFFERED TO FILL MENU OUT FOR PT. PT DECLINES. STATES "IM FINE WITH WHATEVER I GET." PT DENIES NEEDS. CALL LIGHT REMAINS IN REACH. WILL CONT TO MONITOR.
--- NOTE | 2019-11-07 10:54 | NUR ---
PT APPEARS TO BE SLEEPING. RESP APPEAR EVEN AND NON LABORED. WILL CONT TO MONITOR.
--- NOTE | 2019-11-07 14:25 | NUR ---
PT APPEARS TO BE SLEEPING. RESP EVEN AND NON LABORED.
--- NOTE | 2019-11-07 17:35 | NUR ---
DINNER TRAY PROVIDED TO PT.
--- NOTE | 2019-11-07 17:56 | NUR ---
SHIFT SUMMARY PT REMAINED ALERT AND ORIENTED THROUGHTOUT SHIFT. PT VSS. DISCREPANCY BETWEEN LEFT AND RIGHT ARM BP. ECHO COMPLETE THIS AFTERNOON. PT DIET ADVANCED TO REG, SAWYER WELL. PT WORKED WITH THERAPY TODAY. DENIES PAIN/SOB. RECTAL TUBE REMOVED DUE TO NO OUTPUT THIS SHIFT. SONG DRAINING DARK YELLOW URINE. STATUS CHANGED TO MEDICAL WITH TELE. PT HAD VISITORS TODAY. SKIN INTACT. LUNG SOUNDS CLEAR. BOWEL TONES WNL. WILL CONT TO MONITOR AND REPORT TO ONCOMING SHIFT.
--- NOTE | 2019-11-07 18:10 | NUR ---
SHIFT SUMMARY PT ALERT AND ORIENTED THROUGOUGHT SHIFT. PT VSS. SAWYER REGULAR DIET. INDEPENDENT IN ROOM. 2 OF 3 TESTS NEGATIVE FOR COVID-19. PLAN TO DC PT HOME TONIGHT IF 3RD RESULTS NEGATIVE. RX TO BE FAXED TO [facility]. PER DR ASHBY GIVE 2100 DOSE ROCEPHIN NOW TO ENSURE DOSE GIVEN FOR TODAY. UPDATED PT. PT HAD LARGE BM, UOP WNL. SKIN INTACT. PT DENIES/SOB. WILL REPORT TO YOLY MARIE.
[2019-11-07] MEDS ORDERED: ALBU90OI INH (18:18)
[2019-11-07] MEDS ORDERED: CEFU500T30 PO (18:19)
[2019-11-07] MEDS ORDERED: AZIT250 PO (18:19)
[2019-11-07] MEDS ORDERED: PREDNISONE PO (18:20)
--- NOTE | 2019-11-07 18:48 | NUR ---
MARIN STARTED PER DR SYMONE PARKS (TO GIVE PRIOR TO DC). PT STATES HE USES [facility], MED LIST FAXED TO PHARMACY. PT STATES HE WILL GET THEM TOMORROW.
--- NOTE | 2019-11-07 20:12 | NUR ---
11/06 @ 20:11 RECEIVED CALL FROM NADEGE VALDES IN LAB, STATES THAT [facility] DECLINED NEED FOR 3RD AND FINAL SWAB SINCE NASOPHARANGEAL AND SPUTUM CULTURES WERE BOTH NEGATIVE. WILL INFORM AND DISCHARGE PATIENT.
--- NOTE | 2019-11-07 20:18 | NUR ---
LAB RESULTS: CALLED AND SPOKE WITH NURSING AIRPORT CLERK ADEN MOODY THAT LAB CALLED AND CLEARED THE PT. NURSING AIRPORT CLERK CALLED AND SPOKE WITH KEISHA IN LAB WHO SAID THAT THE [facility] IS ONLY RUNNING 1 UPPER RESPIRATORY; WHICH THEY CHOSE THE NASOPHARENGEAL,AND 1 LOWER RESPIRATORY; WHICH THEY WAS THE SPUTUM. BOTH SAMPLES CAME BACK NEGATIVE FOR COVID-19. PT IS CLEAR TO LEAVE HOSPITAL.
--- NOTE | 2019-11-07 21:28 | NUR ---
DISCHARGE NOTE PATIENT DISCHARGED FROM UNIT @ 20:44, November. ALL QUESTIONS WERE ANSWERED, EDUCATED ON APPROPRIATE TOPICS INCLUDING HAND-WASHING, S/S OF UPPER RESPIRATORY INFECITON, WHAT TO WATCH FOR AND WHEN TO CALL FOR MEDICAL ASSISTANCE. INSTRUCTIONS WERE GIVEN TO CALL HIS PRIMARY CARE PHYSICIAN FOR FOLLOW-UP APPOINTMENT. MEDICATIONS WERE FAXED TO PATIENT'S PREFERRED PHARMACY ON DAY SHIFT. IV REMOVED. CALLED [facility] TO TAKE PATIENT HOME TO [facility], STATES HE CAN GET IN VIA THE CHANNELER WHOM HAS HIS KEYS TO HIS APPARTMENT, CELL PHONE CHARGED APPROPRIATELY. IT HAS BEEN A PLEASURE TAKING CARE OF THIS PATIENT.
== END 2019-11-07 20:45 | disposition home or self-care (01) | DRG 872 ==
LOC: ER 16:04 → ERHOLD 11-06 00:21 → ICUW 11-06 02:40
PROVIDERS: Emergency Medicine; Physician Assistant; ADMIT Internal Medicine
DX: A41.9 Sepsis, unspecified organism (principal); J44.1 Chronic obstructive pulmonary disease with (acute) exacerbation; I73.9 Peripheral vascular disease, unspecified; I10 Essential (primary) hypertension; Z66 Do not resuscitate; Z79.82 Long term (current) use of aspirin; Z59.0 Homelessness; Z87.891 Personal history of nicotine dependence
CPT/HCPCS: 0099U; 36415; 71046; 71260; 80053; 83605; 84145; 85025; 87804; 94640; 96365-59; 96366; 96367-59; 99285-25; A9270; A9270-GY; J0456; J0696; J1650; J2405; J7030; J7050; J7512; Q9967

== ENCOUNTER 2020-01-22 17:36 | Inpatient (IN) | payer MEDICARE, OTHER ==
[~2020-01-22] VITALS: Ht 170.2 cm; Wt 62.2 kg
[~2020-01-22 17:36] MED LIST changes: +AZIT250 PO; +CEFU500T30 PO; +PREDNISONE PO
[2020-01-22] MEDS ORDERED: CYCL10 PO (19:39)
[2020-01-22 19:50] LABS: BASOPHILS ABSOLUTE AUTO 0.07 K/mm3 (0.00-0.23); BASOPHILS PERCENT AUTO 1 % (0-2); EOSINOPHILS ABSOLUTE AUTO 0.37 K/mm3 (0.00-0.68); EOSINOPHILS PERCENT AUTO 3 % (0-6); Hematocrit 43.8 % (37.0-53.0); Hemoglobin 14.7 g/dL (13.5-17.5); IMMATURE GRAN PERCENT AUTO 1 % (0-1); LYMPHOCYTES ABSOLUTE AUTO 1.64 K/mm3 (0.84-5.20); LYMPHOCYTES PERCENT AUTO 11 % (21-46); MONOCYTES ABSOLUTE AUTO 1.14 K/mm3 (0.16-1.47); MONOCYTES PERCENT AUTO 8 % (4-13); Mean Corpuscular HGB 29.3 pg (26.0-34.0); Mean Corpuscular HGB Conc 33.6 g/dL (31.5-36.5); Mean Corpuscular Volume 87 fL (80-100); Mean Platelet Volume 10.2 fL (9.1-12.4); NEUTROPHILS ABSOLUTE AUTO 11.33 K/mm3 (1.96-9.15); NEUTROPHILS PERCENT AUTO 77 % (41-73); Platelet Count 275 K/mm3 (150-400); RDW Coefficient Variation 16.2 % (11.7-14.2); RDW Standard Deviation 52.5 fL (35.1-46.3); Red Blood Cell Count 5.01 M/mm3 (4.30-5.90); White Blood Cell Count 14.65 K/mm3 (4.00-11.30)
[2020-01-22 20:05] LABS: International Normalized Ratio 0.91; Prothrombin Time Results 9.8 Sec (9.7-11.5)
[2020-01-22 20:06] LABS: Anion Gap 5 mmol/L (6-16); Blood Urea Nitrogen 16 mg/dL (8-24); Bun/Creatinine Ratio 20.7 (12.0-20.0); CO2, Blood 27 mmol/L (21-32); Calcium, Blood 9.3 mg/dL (8.5-10.1); Chloride, Blood 106 mmol/L (98-108); Creatinine, Blood 0.77 mg/dL (0.60-1.20); Glomerular Filtration Rate >60 (60-); Glucose, Blood 91 mg/dL (70-99); Potassium, Blood 4.4 mmol/L (3.5-5.5); Sodium, Blood 138 mmol/L (136-145)
[2020-01-23] MEDS ORDERED: ALBU90OI INH (00:48)
--- NOTE | 2020-01-23 01:47 | NUR ---
PT TO ICU 11 FROM CITY CLERK AT 2330. PT ALERT AND ORIENTED. PT ARRIVES WITH SHEATH TO RIGHT GROIN INFUSING NS WITH HEPARIN VIA PRESSURE BAG, CHG TEGADERM COVERING SITE. SITE C/D/I, SOFT/NONTENDER, NO BLEEDING. LEFT PEDAL SHEATH INFUSING ALTEPLASE AT 1 MG (50 ML/HR) FOR 6 HOURS FOLLOWED BY 0.5 MG (25 ML/HR) FOR 12 HOURS. HEPARIN INFUSING IN LAC PERIPHERAL IV AT 4.8 U/KG/HR (6 ML/HR) DOSE WT 62 KG. LEFT LEG COOLER THAN RIGHT LEG AND DUSKY. NO PULSES PRESENT, PER CATH NURSE THIS IS UNCHANGED FROM ADMISSION. PT REPORTS NUMBNESS, OCCASIONAL PAIN IN KNEE. PT REMINDED TO MINIMIZE MOVEMENT OF BLE AND ASK FOR ASSISTANCE NEEDED. Q4 NEURO CHECKS ORDERED. SEE FULL ADMISSION ASSESSMENT
--- NOTE | 2020-01-23 03:45 | NUR ---
PT EXPERIENCING INCREASING PAIN AND RESTLESSNESS CAUSING TPA SHEATH OCCLUSION DESPITE VERSED AND FENTANYL ADMINISTRATION. PHONE CALL TO DR. LEVINE, ORDER FOR ONE TIME DOSE OF BENADRYL AND INCREASE IN FENTANYL DOSE AND FREQUENCY. SOFT RESTRAINT PLACED ON LEFT LOWER LEG POSITIONAL REMINDER. PT RESPONDED WELL TO MEDICATION AND IS CURRENTLY RESTING COMFORTABLY.
[2020-01-23 05:00] LABS: BASOPHILS ABSOLUTE AUTO 0.06 K/mm3 (0.00-0.23); BASOPHILS PERCENT AUTO 0 % (0-2); EOSINOPHILS ABSOLUTE AUTO 0.37 K/mm3 (0.00-0.68); EOSINOPHILS PERCENT AUTO 2 % (0-6); Hematocrit 42.1 % (37.0-53.0); Hemoglobin 13.7 g/dL (13.5-17.5); IMMATURE GRAN ABSOLUTE AUTO 0.09 K/mm3 (0.00-0.10); IMMATURE GRAN PERCENT AUTO 1 % (0-1); LYMPHOCYTES ABSOLUTE AUTO 2.04 K/mm3 (0.84-5.20); LYMPHOCYTES PERCENT AUTO 13 % (21-46); MONOCYTES ABSOLUTE AUTO 1.42 K/mm3 (0.16-1.47); MONOCYTES PERCENT AUTO 9 % (4-13); Mean Corpuscular HGB 28.8 pg (26.0-34.0); Mean Corpuscular HGB Conc 32.5 g/dL (31.5-36.5); Mean Corpuscular Volume 88 fL (80-100); NEUTROPHILS ABSOLUTE AUTO 11.85 K/mm3 (1.96-9.15); NEUTROPHILS PERCENT AUTO 75 % (41-73); Platelet Count 207 K/mm3 (150-400); RDW Standard Deviation 52.7 fL (35.1-46.3); Red Blood Cell Count 4.76 M/mm3 (4.30-5.90); White Blood Cell Count 15.83 K/mm3 (4.00-11.30)
[2020-01-23 05:23] LABS: Anion Gap 6 mmol/L (6-16); Blood Urea Nitrogen 15 mg/dL (8-24); Bun/Creatinine Ratio 16.7 (12.0-20.0); CO2, Blood 27 mmol/L (21-32); Calcium, Blood 8.6 mg/dL (8.5-10.1); Chloride, Blood 107 mmol/L (98-108); Glomerular Filtration Rate >60 (60-); Glucose, Blood 89 mg/dL (70-99); Potassium, Blood 3.8 mmol/L (3.5-5.5); Sodium, Blood 140 mmol/L (136-145)
--- NOTE | 2020-01-23 05:52 | NUR ---
SHIFT SUMMARY PT REMAINS ALERT AND ORIENTED. RIGHT FEMORAL SHEATH UNCHANGED SINCE ADMISSION. RIGHT PEDAL SHEATH CONTINUES TO INFUSE TPA@ 1 MG/HR. PT CONTINUES TO EXPERIENCE PAIN AND DISCOMFORT IN LEFT LEG. MEDICATED REGULARLY PER EMAR WITH NO LASTING RELIEF. PATIENT ATTEMPTS TO SIT UP AND ROLL OVER. SOFT RESTRAINT REMAINS ON LEFT ANKLE POSITIONAL REMINDER. PT HYPERTENSIVE OCCASIONALLY, TREATED PER EMAR. PT ON 2L NC, SATS@ 93%. HEPARIN GTT INFUSION RATE REMAINS UNCHANGED SINCE ADMISSION. WILL REPORT TO DAYSHIFT NURSE.
--- NOTE | 2020-01-23 07:50 | NUR ---
BEGINNING OF SHIFT Assumed care at 0700. Bedside report received from Reji MARIE. TPA infusing per orders through arterial sheath to L post-tibial artery. Pressure bag to R femoral artery. Heparin infusing per orders through peripheral IV. Pt laying in bed, in severe pain. States his left leg is throbbing. Pt moving right leg and left leg from discomfort. Pt remineded of activity limitations with regard to arterial access. Pt given PO tylenol and IV fentanyl. After giving fentanyl, pt states pain is much more tolerable. Unable to locate distal pulses with doppler on LLE. LLE cool, but pink in appearance. Pt initially on 2 LPM NC. Titrated to room air. SpO2 90% or greater at this time. Lungs clear with dim bases. SR-ST per monitor with HR ranging between 95 and 105. Hypertensive, likely due to pain. Will continue to reassess.
--- NOTE | 2020-01-23 09:35 | NUR ---
DR AKBAR IN TO SEE PT Discussed pain control. Provider states to change fentanyl to dilaudid IV.
--- NOTE | 2020-01-23 09:40 | NUR ---
UPDATE TO FAMILY Pt's son, Juan Murray [phone], called unit for update. Pt gave verbal consent for me to update son. Update given, questions answered to caller's satisfaction.
--- NOTE | 2020-01-23 13:27 | NUR ---
ATTEMPTED TO PLACE CALL TO DR LEVINE Provider in procedure, unavailable. Left message regarding low fibrinogen level.
--- NOTE | 2020-01-23 13:35 | NUR ---
NEW ORDERS FOR ALTEPLASE Per Dr Vega, alteplase to be decreased by half. New dose is 0.25 mg/hr
--- NOTE | 2020-01-23 16:20 | NUR ---
DR LEVINE IN TO SEE PT Provider in to assess foot. States plan to take pt to laborer beam house within the hour.
--- NOTE | 2020-01-23 16:53 | NUR ---
Initial spiritual care note: Per admnit trigger, I met with Mr. Murray to offer information on advanced care planning. He told me about the of his 25 years ago, and how much he still misses her. No children and he denies family or supportive friends. He appears very alone. He responded well to general counsel and prayer. I gently explained how having an MPOA and POLST would benefit him. He then changed the subject. He will benefit from another attempt at this conversation. He admits he is worried about his health and future. Party Plan Dealer services will remain available.
--- NOTE | 2020-01-23 17:32 | NUR ---
SUMMARY Pt remains A&O x 4. Pt has struggled with pain control, however dilaudid seems to keep his pain tolerable for about 2 hours. Pt remains with TPA infusing to post tibial arterial sheath at 0.25 mg/hr. Groin sheath has pressure bag in place. Both sites have dressings that are C/D/I. No bruising, hematoma, or drainage to either site. Heparin per orders running peripherally into IV. Pt has not yet gone to tailings dam laborer, but is expected to go back for procedure soon. Pt has been NPO for entire shift except for PO medications. LLE is dusky and has poor capillary refill. Unable to locate distal pulses to LLE. Pt has been SR-ST this shift with rate ranging from 95-105. Hypertensive at times, but this often correlates with pt's pain level. Hydralyzine given once for high BP while pt was resting with pain at a tolerable level. Will continue to closely monitor until care handoff and bedside report with oncoming RN.
--- NOTE | 2020-01-23 21:33 | NUR ---
ASSUMED CARE NOTE: 1899: RECEVIED REPORT FROM GEORGINA MARIE. PT REMAINS IN SAP TECHNICAL ARCHITECT. 1949: CALLED REGARDING FIBRINOGEN ORDERS. ORDERS GIVEN TO CHECK FIBRINOGEN LEVELS Q6HRS. ORDERS TO RESTART ALTEPLASE AT 0.25MG/HR T/O THE NIGHT FOR 15 HOURS. 1951: PT ARRIVED TO THE UNIT. RECEVIED BEDSIDE REPORT FROM INÉS SAP TECHNICAL ARCHITECT NURSE. PT IS ALERT AND ORIENTEDX4. PT IS ON 2L OF O2 VIA NC, WITH SPO2 ABOVE 90% LUNG SOUNDS ARE CLEAR IN THE UPPER BASES AND DIMINISHED BILAT IN LOWER. NO COUGH OR SOB NOTED. PT IS IN NSR WITH HR IN THE 80'S. PT DENIES ANY N/V AT THIS TIME. BOWEL TONES HEARD IN ALL FOUR QUADRANTS. RIGHT FEMORAL SHEATH SITE COVERED WITH GAUZE AND A CLEAR DRESSING, DRIED BLOOD NOTED TO DRESSING, NO ACTIVE BLEEDING NOTED. LEFT PEDAL SHEATH IN PLACE NO ACTIVE BLEEDING OR HEMATOMA NOTED TO SITE. PT IS C/O 7/10 PAIN TO LLE, AND STATES THAT HE FEELS NUMBNESS AND TINGILING. LLE APPEARS DUSKY, MOTTLED, RED AND COLORED TO THE TOUCH. NO PULSE WITH DOPPLER FOUND TO LLE. PT WAS GIVEN 1MG OF HYDROMORPHONE ON ARRIVAL. 2009: LEFT PEDAL SHEATH WAS CONNECTED TO 0.25MG/HR OF ALTEPLASE, MEDICATION VERFIED BY THIS NURSE, REINA RAMOS RN, AND INÉS SAP TECHNICAL ARCHITECT RN.
--- NOTE | 2020-01-23 23:31 | NUR ---
UPDATE: RIGHT FEMORAL ACCESS SITE BEGAN TO BLEED AT 2245, MANUAL PRESSURE HELD FOR 30MINTUTES, SMALL HEMATOMA NOTED. QUE DRESSING APPLIED. LEFT PEDAL SHEATH OZZING FROM SITE. CALLED WITH AN UPDATE. ORDERS TO CONTINUE tPA. ORDERS TO USE FEMSTOP CLAMP IF BLEEDING CONTINUES. PEDAL PULSE TO LLE FOUND WITH DOPPLER.
--- NOTE | 2020-01-24 01:36 | NUR ---
UPDATE: CHANGED DRESSING TO LEFT PEDAL SHEATH DRESSING. WIRE SPOOLER USED AND MAINTAINED. RIGHT FEMORAL SITE CONTINUES TO OOZE. FEM STOP APPLIED, CLAMPED, HOWEVER NO PRESSURE APPLIED TO FEM STOP.
--- NOTE | 2020-01-24 03:06 | NUR ---
UPDATE: NO OOZING FROM RIGHT FEM SITE NOTED. PT LEFT PEDAL SHEATH DRESSING IS INTACT, NO POOLING OF BLOOD NOTED TO SITE. LLE IS COOL TO THE TOUCH, PULSE CAN BE FOUND WITH DOPPLER. PT REPORTS PAIN TO LLE, PAIN MEDS HAVE BEEN GIVEN PER EMAR.
--- NOTE | 2020-01-24 05:44 | NUR ---
UPDATE: PT HAD NOT VOIDED, FOR SIX HOURS. BLADDER SCANNED THE PT WHICH SHOWED 999MLS. CALLED HOSPITALIST, ORDERS TO STRAIGHT CATH PT GIVEN. ORDERS TO BLADDER SCAN PT IN 6 HOURS AND STRAIGHT CATH IF OVER 400MLS.
--- NOTE | 2020-01-24 06:20 | NUR ---
SHIFT SUMMARY: SEE PREVIOUS NOTES. FEMSTOP HAS BEEN TAKEN OFF, NO OZZING NOTED TO RIGHT FEM SITE. LEFT POST-TIBIAL SHEATH OZZING SMALL AMOUNTS OF BLOOD. LEFT PEDAL PULSE COME AND GOES, CAN BE FOUND WITH DOPPLER. PT HAS BEEN C/O PAIN, DILAUDID HAS BEEN GIVEN Q2H PER EMAR. VSS, PT HAS BEEN IN NSR-SIT WITH HR BETWEEN 80-105. PT WAS STRAIGHT CATH DUE TO URINARY RETENTION. PT HAS BEEN REPOSITIONED MUCH POSSIBLE, KEEPING BOTH LOWER ETREMITIES IN NEUTRAL POSITION. tPA INFUSING @ 0.25MG/HR TO LEFT POST-TIBAL SHEATH, AND HEPARIN INFUSING @ 4.8UNITS/KG/HR. WILL CONTINUE TO MONITOR UNTIL REPORT IS GIVEN TO ONCOMING SHIFT.
--- NOTE | 2020-01-24 07:35 | NUR ---
ASSUMED CARE PT. ALERT AND ORIENTED THIS AM. PT. REMAINS IN SUPINE POSITION WITH LEFT LEG ELEVATED ON PILLOW FOR COMFORT. PT. REPORTS PAIN 12/13 THIS AM TO LLE. PT. CURRENTLY ON 2LNC-TITRATED OFF. PT. VSS THIS AM. LS CLEAR/DIM. RIGHT GROIN SITE WITH DSTAT IN PLACE, SMALL AMOUNT OF OOZE TO DRESSING THAT WAS OUTLINED BY ICT SUPPORT ENGINEER RN. GROIN SITE SOFT, SLIGHTLY TENDER TO PALPATION, NO SWELLING NOTED. PT. RIGHT LEG PALE IN COLOR, WARM TO TOUCH. DOPPLER PULSES NOTED. PT. LEFT LEG CONTINUES WITH SHEATH IN PLACE TO POST TIBIAL C TPA INFUSING AT 0.25MG/HR. PT TO RETURN TO WAIVER ANALYST THIS AM. HEPARIN GTT ALSO INFUSING AT 4.8U/KG/HR. OOZING NOTED AROUND SHEATH SITE, PER ICT SUPPORT ENGINEER RN DR. JULIANNA PERKINS, CALL LIGHT IN REACH.
[2020-01-24 07:42] LABS: Hemoglobin 13.2 g/dL (13.5-17.5); Mean Corpuscular HGB 29.1 pg (26.0-34.0); Mean Corpuscular HGB Conc 32.2 g/dL (31.5-36.5); Mean Corpuscular Volume 90 fL (80-100); Mean Platelet Volume 10.2 fL (9.1-12.4); Platelet Count 147 K/mm3 (150-400); RDW Coefficient Variation 16.3 % (11.7-14.2); RDW Standard Deviation 54.4 fL (35.1-46.3); Red Blood Cell Count 4.54 M/mm3 (4.30-5.90); White Blood Cell Count 15.61 K/mm3 (4.00-11.30)
[2020-01-24 07:51] LABS: Anion Gap 6 mmol/L (6-16); Blood Urea Nitrogen 24 mg/dL (8-24); Bun/Creatinine Ratio 29.3 (12.0-20.0); CO2, Blood 26 mmol/L (21-32); Calcium, Blood 8.5 mg/dL (8.5-10.1); Chloride, Blood 105 mmol/L (98-108); Creatinine, Blood 0.82 mg/dL (0.60-1.20); Glomerular Filtration Rate >60 (60-); Glucose, Blood 78 mg/dL (70-99); Potassium, Blood 4.2 mmol/L (3.5-5.5); Sodium, Blood 137 mmol/L (136-145)
--- NOTE | 2020-01-24 10:18 | NUR ---
UPDATE PLANS FOR PT TO RETURN TO PHARMACEUTICAL SALESPERSON THIS AFTERNOON. LIGHT BREAKFAST PROVIDED PER DR. LEVINE. TPA AND HEPARIN INFUSING, PT. CONTINUES TO HAVE OOZING TO LLE. DRY FLOW IN PLACE. MED FOR PAIN PER DR. PARKS. VSS. CALL LIGHT IN REACH.
--- NOTE | 2020-01-24 17:19 | NUR ---
PT. BEING PREPPED TO RETURN TO DIRECTOR FIELD SERVICES AT THIS TIME.
--- NOTE | 2020-01-24 17:20 | NUR ---
SHIFT SUMMARY PT. REMAINS ALERT AND ORIENTED T/O SHIFT. ABLE TO HELP WITH REPOSITIONING FOR COMFORT. PT GROIN SITE REMAINED UNCHANGED T/O SHIFT, SMALL HEMATOMA WITH SMALL AMOUNT OF DRAINAGE TO QUE DRESSING THAT WAS UNCHANGED. PT. LEFT ACCESS SITE CONTINUED TO OOZE T/O DAY WITH TPA AND HEPARIN INFUSING. PT. RETURING TO CHEESE FACTORY WORKER FOR SHEATH REMOVAL. MED FOR PAIN T/O SHIFT. VSS UPON RETURN TO CHEESE FACTORY WORKER. REPORT TO ONCOMING FRANK.
--- NOTE | 2020-01-24 20:10 | NUR ---
ASSUMED CARE NOTE: RECEVIED BEDSIDE REPORT FROM SIZING MACHINE OPERATOR RN JESS Fisher PT ARRIVED TO UNIT AT 1905, PT IS ALERT AND ORIENTEDX3, STATES PAIN IS 4/10 TO LLE, PULSE WAS NOT FOUND WITH DOPPLER TO LLE, LIMB IS COOL TO THE TOUCH. LUNG SOUNDS ARE CLEAR IN THE UPPER LOBES, DIM IN THE LOWER. PT ARRIVED ON 2L OF O2 VIA NC, WTH SPO2 ABOVE 90% PT IN NSR WITH HR IN THE 80'S, SBP IN THE 70'S, MAP IN THE 50'S. CALLED REGARDING LOW BP, ORDERS TO GIVE 1000ML BOLUS GIVEN OF NS , AND TO CONTINUE MAINTIANCE FLUIDS AT 125ML/HR OF NS. ORDERS ALSO GIVEN FOR STAT PELVIS AND ABDOMEN CT W/O CONTRAST GIVEN. PT AT CT FROM [id number]. BLOOD PRESSURE IMPROVING, SBP ABOVE 100. AT BEDSIDE AT 2014. HEPRAIN RESTARTED. CT SCAN CLEAR. PT C/O LLE PAIN 7/10, MEDS GIVEN PER EMAR. PT RESTING. BED AT LOWEST LEVEL, CALL LIGHT WITHIN REACH
--- NOTE | 2020-01-24 22:10 | NUR ---
UPDATE: LLE IS WARM TO THE TOUCH, PULSE FOUND WITH DOOPLER. PT STATES HAS 4/10 PAIN, AND DOES NOT NEED PAIN MEDS AT THIS TIME. PILLOWS PLACED BELOW BOTH NEEDS. VSS. WILL CONTINUE TO MONITOR PT AT THIS TIME.
--- NOTE | 2020-01-25 01:37 | NUR ---
UPDATE: PT ALERT AND MOVING ALL EXTREMITIES. PT IN BILAT SWR, ATTEMPTING TO REACH AT ETT. CRISTOBAL AT BEDSIDE ORDERS FOR 25MG OF FENTYNAL Q1H GIVEN
--- NOTE | 2020-01-25 02:28 | NUR ---
UPDATE: CALLED HOSPITALIST AVERY, REGARDING URINE RETENTION. BLADDER SCAN READ 480ML OF URINE. ORDERS TO PLACE SONG GIVEN.
[2020-01-25 02:37] LABS: Source, Urine Catheter
[2020-01-25 02:41] LABS: Bilirubin, Urine Neg (Neg); Blood, Urine 5+ (Neg); Glucose Qualitative, Urine Neg (Neg); Ketones, Urine 1+ (Neg); Leukocyte Esterase, Urine Neg (Neg); Nitrite, Urine Neg (Neg); Protein, Urine 2+ (Neg); Urobilinogen, Urine NORM (Normal)
[2020-01-25 03:13] LABS: Amorphous Light (0-Heavy); Appearance, Urine Clear (Clear); Bacteria Not Seen /hpf; Color, Urine Yellow (P-Yellow); Red Blood Cells, Urine 0-2 /hpf (0-2); Squamous Epithelial Cells Not Seen /hpf (Few); White Blood Cells, Urine Not Seen /hpf (0-5)
[2020-01-25 03:40] LABS: Hemoglobin 11.4 g/dL (13.5-17.5); Mean Corpuscular HGB 29.7 pg (26.0-34.0); Mean Corpuscular HGB Conc 33.5 g/dL (31.5-36.5); Mean Corpuscular Volume 89 fL (80-100); Mean Platelet Volume 9.8 fL (9.1-12.4); Platelet Count 124 K/mm3 (150-400); RDW Coefficient Variation 15.9 % (11.7-14.2); RDW Standard Deviation 52.1 fL (35.1-46.3); Red Blood Cell Count 3.84 M/mm3 (4.30-5.90); White Blood Cell Count 13.37 K/mm3 (4.00-11.30)
[2020-01-25 03:54] LABS: Anion Gap 5 mmol/L (6-16); Blood Urea Nitrogen 17 mg/dL (8-24); Bun/Creatinine Ratio 24.3 (12.0-20.0); CO2, Blood 28 mmol/L (21-32); Calcium, Blood 7.9 mg/dL (8.5-10.1); Chloride, Blood 107 mmol/L (98-108); Glomerular Filtration Rate >60 (60-); Glucose, Blood 108 mg/dL (70-99); Potassium, Blood 3.9 mmol/L (3.5-5.5); Sodium, Blood 140 mmol/L (136-145)
--- NOTE | 2020-01-25 06:08 | NUR ---
SHIFT SUMMARY: PT REMAINS ON 4.8U/HR OF HEPARIN. LLE IS WARM TO THE TOUCH AND PULSE CAN BE FOUND WITH DOPPLER. PT HAS RECEVIED DILAUDID PRN FOR PAIN. NO OOZING NOTED TO POST TIBIAL CATH SITE, NUPTUNE DRESSING C/D/I. PT HAS REMAINED ON RA WITH SPO2 ABOVE 90% PT HAS A DRY COUGH, CLAIMS IT IS CHRONIC. PT RECEVIED A CATH THIS SHIFT DUE TO URINE RETENTION, URINE IS NOW CLEAR AND YELLOW. VSS. PT HAS BEEN IN NSR WITH HR IN THE 90'S. WILL CONTIUNUE TO MONITOR PT T/O SHIFT
--- NOTE | 2020-01-25 07:45 | NUR ---
ASSUMED CARE BEDSIDE REPORT RECIEVED. PT IS LAYING IN BED AWAKE, ALERT, AND ORIENTED. PT IS FOLLOWING DIRECTIONS APPROPRIATELY. PT COMPLAINS OF PAIN TO LEFT LOWER EXTREMITY AT THIS TIME. VITAL SIGNS STABLE. PT ON ROOM AIR. RIGHT GROIN AND LEFT POSTERIOR TIBIAL ACCESS SITES ARE C/D/I. STRONG DOPPLER PULSE PRESENT TO LEFT PEDAL. NS INFUSING AT 125 ML/HR AND HEPARIN GTT INFUSING AT 4.8 UNITS/KG/HR. SONG IN PLACE WITH CLEAR YELLOW OUTPUT NOTED. WILL CONTINUE TO MONITOR.
--- NOTE | 2020-01-25 12:47 | NUR ---
DR. LEVINE: DR. LEVINE STATES PT OK FOR DISCHARGE FROM HIS STANDPOINT. PT WILL NEED TO BE SEEN IN FOLLOW UP AT DR. LEVINE'S OFFICE. PT ALSO NEEDS ORAL ANTICOAGULATION UPON DISCHARGE - EITHER XARELTO OR COUMADIN.
[2020-01-25] MEDS ORDERED: ROXYBOND5 MG PO (13:41)
[2020-01-25] MEDS ORDERED: TAMS.4ER PO (13:41)
[2020-01-25] MEDS ORDERED: XARELTO20 MG PO (13:41)
--- NOTE | 2020-01-25 15:38 | NUR ---
DISCHARGE PT DISCHARGED TO HOME. PT TAKEN OUT VIA WHEEL CHAIR TO [facility]. DISCHARGE INSTRUCTIONS AND MEDICATIONS REVIEWED WITH PT. ALL BELONGINGS SENT WITH PT.
== END 2020-01-25 15:30 | disposition home or self-care (01) | DRG 315 ==
LOC: ER 17:36 → ICUW 21:40
PROVIDERS: Emergency Medicine; Internal Medicine; Nurse Practitioner Acute Care; Radiology Diagnostic Radiology; ADMIT Internal Medicine
PROC: B41G1ZZ Fluoroscopy of Left Lower Extremity Arteries using Low Osmolar Contrast (ICD-10-PCS; principal; 2020-01-22)
PROC: B41C1ZZ Fluoroscopy of Pelvic Arteries using Low Osmolar Contrast (ICD-10-PCS; 2020-01-22)
PROC: B41F1ZZ Fluoroscopy of Right Lower Extremity Arteries using Low Osmolar Contrast (ICD-10-PCS; 2020-01-22)
PROC: 3E05317 Introduction of Other Thrombolytic into Peripheral Artery, Percutaneous Approach (ICD-10-PCS; 2020-01-22)
DX: T82.868A Thrombosis due to vascular prosthetic devices, implants and grafts, initial encounter (principal); I82.412 Acute embolism and thrombosis of left femoral vein; I74.5 Embolism and thrombosis of iliac artery; J44.9 Chronic obstructive pulmonary disease, unspecified; I10 Essential (primary) hypertension; Z89.422 Acquired absence of other left toe(s); F17.210 Nicotine dependence, cigarettes, uncomplicated; Z79.82 Long term (current) use of aspirin; Z66 Do not resuscitate; R33.8 Other retention of urine; I99.8 Other disorder of circulatory system
CPT/HCPCS: 36140; 36415; 37211; 37213; 37214; 37220; 37221; 37222; 51701; 51702; 74176; 75710; 75716; 75774; 76937; 80048; 81001; 85025; 85027; 85384; 85610; 85730; 93926; 96365-59; 96366-59; 97110; 97116; 97162; 99152; 99153; 99285-25; A9270; A9270-GY; C1725; C1751; C1769; C1876; C1887; C1894; J0360; J1170; J1200; J1644; J2250; J2997; J3010; J7030; J7040; Q9967

== ENCOUNTER 2020-06-09 18:14 | Emergency (ER) | payer MEDICARE, OTHER ==
[~2020-06-09] VITALS: Ht 170.2 cm; Wt 61.2 kg
[~2020-06-09 18:14] MED LIST changes: +ROXYBOND5 MG PO; +XARELTO20 MG PO
== END 2020-06-09 23:02 | disposition left against medical advice (07) ==
LOC: ER 18:14
DX: R51.9 Headache, unspecified (principal); M54.2 Cervicalgia; Z53.21 Procedure and treatment not carried out due to patient leaving prior to being seen by health care provider; Z79.82 Long term (current) use of aspirin; Z79.899 Other long term (current) drug therapy; Z79.01 Long term (current) use of anticoagulants; V74.9XXA Unspecified occupant of bus injured in collision with heavy transport vehicle or bus in traffic accident, initial encounter; Y92.410 Unspecified street and highway as the place of occurrence of the external cause
CPT/HCPCS: 70450; 72125; 99284-25; L0160

== ENCOUNTER 2020-09-04 20:53 | Emergency (ER) | payer MEDICARE, OTHER ==
[~2020-09-04] VITALS: Ht 170.2 cm; Wt 63.5 kg
[~2020-09-04 20:53] MED LIST changes: +LIDO700A20 TOP
[2020-09-04] MEDS ORDERED: Ventolin/Prove6.7 GM (21:03)
== END 2020-09-04 23:01 | disposition home or self-care (01) ==
LOC: ER 20:53
DX: S70.01XA Contusion of right hip, initial encounter (principal); J44.9 Chronic obstructive pulmonary disease, unspecified; I10 Essential (primary) hypertension; F17.210 Nicotine dependence, cigarettes, uncomplicated; Z79.82 Long term (current) use of aspirin; Z86.718 Personal history of other venous thrombosis and embolism; Z79.899 Other long term (current) drug therapy; W01.198A Fall on same level from slipping, tripping and stumbling with subsequent striking against other object, initial encounter
CPT/HCPCS: 73502

== ENCOUNTER 2020-12-01 22:31 | Emergency (ER) | payer MEDICARE, OTHER ==
[~2020-12-01] VITALS: Ht 170.2 cm; Wt 63.5 kg
[~2020-12-01 22:31] MED LIST changes: +Ventolin/Prove6.7 GM
[2020-12-02] MEDS ORDERED: IBUP200 PO (00:22)
[2020-12-02] MEDS ORDERED: CYCL10 PO (00:23)
[2020-12-02] MEDS ORDERED: ZESTRIL40 M1 PO (00:41)
== END 2020-12-02 01:12 | disposition home or self-care (01) ==
LOC: ER 22:31
DX: I10 Essential (primary) hypertension (principal); F17.210 Nicotine dependence, cigarettes, uncomplicated; Z79.82 Long term (current) use of aspirin; Z79.899 Other long term (current) drug therapy; Z86.718 Personal history of other venous thrombosis and embolism
CPT/HCPCS: 99281; A9270

== ENCOUNTER → 2021-02-11 | Outpatient (CLI) | payer MEDICARE, OTHER ==
[~2021-02-11] MED LIST changes: +IBUP200 PO; +ZESTRIL40 M1 PO
== END | disposition home or self-care (01) ==
LOC: LAB SHORT 08:20 → LAB 08:20
DX: C44.320 Squamous cell carcinoma of skin of unspecified parts of face (principal)
CPT/HCPCS: 88305

== ENCOUNTER 2021-04-05 06:21 | Emergency (ER) | payer MEDICARE, OTHER ==
[~2021-04-05] VITALS: Ht 170.2 cm; Wt 63.5 kg
[2021-04-05] MEDS ORDERED: XARELTO20 MG PO (06:52)
[2021-04-05 07:07] LABS: BASOPHILS ABSOLUTE AUTO 0.06 K/mm3 (0.00-0.23); BASOPHILS PERCENT AUTO 1 % (0-2); EOSINOPHILS PERCENT AUTO 4 % (0-6); Hematocrit 40.6 % (37.0-53.0); Hemoglobin 13.9 g/dL (13.5-17.5); IMMATURE GRAN ABSOLUTE AUTO 0.03 K/mm3 (0.00-0.10); IMMATURE GRAN PERCENT AUTO 0 % (0-1); LYMPHOCYTES ABSOLUTE AUTO 1.65 K/mm3 (0.84-5.20); LYMPHOCYTES PERCENT AUTO 21 % (21-46); MONOCYTES ABSOLUTE AUTO 0.81 K/mm3 (0.16-1.47); MONOCYTES PERCENT AUTO 10 % (4-13); Mean Corpuscular HGB 29.6 pg (26.0-34.0); Mean Corpuscular HGB Conc 34.2 g/dL (31.5-36.5); Mean Corpuscular Volume 86 fL (80-100); Mean Platelet Volume 10.5 fL (9.1-12.4); NEUTROPHILS ABSOLUTE AUTO 5.16 K/mm3 (1.96-9.15); NEUTROPHILS PERCENT AUTO 65 % (41-73); Platelet Count 238 K/mm3 (150-400); RDW Coefficient Variation 14.2 % (11.7-14.2); RDW Standard Deviation 45.2 fL (35.1-46.3); White Blood Cell Count 8.01 K/mm3 (4.00-11.30)
[2021-04-05 07:17] LABS: Alanine Aminotransfer (ALT/SGP 16 U/L (12-78); Albumin, Blood 3.2 g/dL (3.4-5.0); Alk Phos 77 U/L (50-136); Anion Gap 5 mmol/L (6-16); Aspartate Aminotrans (AST/SGOT 10 U/L (12-37); Bilirubin, Total 0.6 mg/dL (0.1-1.0); Blood Urea Nitrogen 13 mg/dL (8-24); CO2, Blood 26 mmol/L (21-32); Calcium, Blood 8.9 mg/dL (8.5-10.1); Chloride, Blood 109 mmol/L (98-108); Creatinine, Blood 0.87 mg/dL (0.60-1.20); Globulin, Blood 3.2 g/dL (2.2-4.0); Glomerular Filtration Rate >60 (60-); Glucose, Blood 110 mg/dL (70-99); Potassium, Blood 3.8 mmol/L (3.5-5.5); Sodium, Blood 140 mmol/L (136-145); Total Protein, Blood 6.4 g/dL (6.4-8.2); Troponin I <0.015 ng/mL (0.000-0.040)
== END 2021-04-05 08:35 | disposition home or self-care (01) ==
LOC: ER 06:21
PROVIDERS: Emergency Medicine
DX: R55 Syncope and collapse (principal); I10 Essential (primary) hypertension; J44.9 Chronic obstructive pulmonary disease, unspecified; I73.9 Peripheral vascular disease, unspecified; R01.1 Cardiac murmur, unspecified; I49.3 Ventricular premature depolarization; Z86.718 Personal history of other venous thrombosis and embolism; Z79.01 Long term (current) use of anticoagulants; Z79.899 Other long term (current) drug therapy; Z79.82 Long term (current) use of aspirin
CPT/HCPCS: 71045; 80053; 84484; 85025; 93005; 93010; 96360; 99285-25; J7030

== ENCOUNTER 2021-04-10 00:41 | Observation (INO) | payer MEDICARE, OTHER ==
[~2021-04-10] VITALS: Ht 167.6 cm; Wt 59.4 kg
[2021-04-10 02:04] LABS: BASOPHILS ABSOLUTE AUTO 0.07 K/mm3 (0.00-0.23); BASOPHILS PERCENT AUTO 1 % (0-2); EOSINOPHILS ABSOLUTE AUTO 0.39 K/mm3 (0.00-0.68); EOSINOPHILS PERCENT AUTO 4 % (0-6); Hematocrit 37.8 % (37.0-53.0); IMMATURE GRAN ABSOLUTE AUTO 0.03 K/mm3 (0.00-0.10); IMMATURE GRAN PERCENT AUTO 0 % (0-1); LYMPHOCYTES ABSOLUTE AUTO 1.93 K/mm3 (0.84-5.20); LYMPHOCYTES PERCENT AUTO 21 % (21-46); MONOCYTES ABSOLUTE AUTO 0.86 K/mm3 (0.16-1.47); MONOCYTES PERCENT AUTO 10 % (4-13); Mean Corpuscular HGB 29.9 pg (26.0-34.0); Mean Corpuscular HGB Conc 34.4 g/dL (31.5-36.5); Mean Corpuscular Volume 87 fL (80-100); NEUTROPHILS ABSOLUTE AUTO 5.74 K/mm3 (1.96-9.15); NEUTROPHILS PERCENT AUTO 64 % (41-73); Platelet Count 208 K/mm3 (150-400); RDW Coefficient Variation 14.1 % (11.7-14.2); RDW Standard Deviation 45.8 fL (35.1-46.3); Red Blood Cell Count 4.35 M/mm3 (4.30-5.90); White Blood Cell Count 9.02 K/mm3 (4.00-11.30)
[2021-04-10 02:17] LABS: Anion Gap 5 mmol/L (6-16); Blood Urea Nitrogen 10 mg/dL (8-24); Bun/Creatinine Ratio 11.4 (12.0-20.0); CO2, Blood 27 mmol/L (21-32); Calcium, Blood 8.4 mg/dL (8.5-10.1); Chloride, Blood 107 mmol/L (98-108); Creatinine, Blood 0.88 mg/dL (0.60-1.20); Glomerular Filtration Rate >60 (60-); Glucose, Blood 103 mg/dL (70-99); Potassium, Blood 4.2 mmol/L (3.5-5.5); Sodium, Blood 139 mmol/L (136-145)
[2021-04-10 04:32] LABS: International Normalized Ratio 0.95; Prothrombin Time Results 10.3 Sec (9.7-11.5)
[2021-04-10 04:37] LABS: Troponin I 0.066 ng/mL (0.000-0.040)
[2021-04-10 08:06] LABS: BASOPHILS ABSOLUTE AUTO 0.07 K/mm3 (0.00-0.23); BASOPHILS PERCENT AUTO 1 % (0-2); EOSINOPHILS ABSOLUTE AUTO 0.28 K/mm3 (0.00-0.68); EOSINOPHILS PERCENT AUTO 3 % (0-6); Hematocrit 40.9 % (37.0-53.0); Hemoglobin 13.8 g/dL (13.5-17.5); IMMATURE GRAN ABSOLUTE AUTO 0.04 K/mm3 (0.00-0.10); IMMATURE GRAN PERCENT AUTO 1 % (0-1); LYMPHOCYTES ABSOLUTE AUTO 1.66 K/mm3 (0.84-5.20); LYMPHOCYTES PERCENT AUTO 19 % (21-46); MONOCYTES ABSOLUTE AUTO 0.69 K/mm3 (0.16-1.47); MONOCYTES PERCENT AUTO 8 % (4-13); Mean Corpuscular HGB 29.4 pg (26.0-34.0); Mean Corpuscular HGB Conc 33.7 g/dL (31.5-36.5); Mean Corpuscular Volume 87 fL (80-100); Mean Platelet Volume 10.6 fL (9.1-12.4); NEUTROPHILS ABSOLUTE AUTO 5.82 K/mm3 (1.96-9.15); NEUTROPHILS PERCENT AUTO 68 % (41-73); Platelet Count 239 K/mm3 (150-400); RDW Coefficient Variation 14.3 % (11.7-14.2); RDW Standard Deviation 45.8 fL (35.1-46.3); Red Blood Cell Count 4.69 M/mm3 (4.30-5.90); White Blood Cell Count 8.56 K/mm3 (4.00-11.30)
[2021-04-10 08:29] LABS: Alanine Aminotransfer (ALT/SGP 18 U/L (12-78); Albumin, Blood 3.1 g/dL (3.4-5.0); Albumin/Globulin Ratio 1.1 (0.8-1.8); Alk Phos 77 U/L (50-136); Anion Gap 4 mmol/L (6-16); Aspartate Aminotrans (AST/SGOT 10 U/L (12-37); Bilirubin, Total 0.5 mg/dL (0.1-1.0); Blood Urea Nitrogen 11 mg/dL (8-24); Bun/Creatinine Ratio 12.1 (12.0-20.0); CO2, Blood 27 mmol/L (21-32); Calcium, Blood 8.6 mg/dL (8.5-10.1); Chloride, Blood 108 mmol/L (98-108); Creatinine, Blood 0.91 mg/dL (0.60-1.20); Globulin, Blood 2.9 g/dL (2.2-4.0); Glomerular Filtration Rate >60 (60-); Glucose, Blood 95 mg/dL (70-99); Potassium, Blood 4.5 mmol/L (3.5-5.5); Sodium, Blood 139 mmol/L (136-145)
[2021-04-10 13:17] LABS: Troponin I 0.043 ng/mL (0.000-0.040)
--- NOTE | 2021-04-10 18:19 | NUR ---
SHIFT SUMMARY: PT A/O X 3 PLEASANT AND COOP. PT IS STANDBY ASSIST DUE TO IV LINES. HE HAS TOLERATED HEPARIN AND IV ANTIBIOTICS. HE HAS NOT C/O CP SINCE ARRIVAL TO UNIT. NO WORSENING SYMPTOMS AND TROPONIN TRENDING DOWN.
--- NOTE | 2021-04-10 18:36 | NUR ---
RN NOTE: SPOKE TO DR. LEWIS REQUESTING NO IV ACCESS AND TO CHANGE TYLENOL TO PRN. DR. LEWIS REPORTED SHE WOULD PLACE THE ORDER.
--- NOTE | 2021-04-10 21:43 | NUR ---
PER PHARMACY, NO CHANGE IN HEPARIN GTT DOSING. PUMP TO REMAIN AT 15U/KG/HR OR 18 ML PER HOUR. PTT CURRENTLY AT 58.4. LAB TO RECHECK AT 0100
[2021-04-11 01:04] LABS: Hematocrit 39.6 % (37.0-53.0); Hemoglobin 13.1 g/dL (13.5-17.5); Mean Corpuscular HGB Conc 33.1 g/dL (31.5-36.5); Mean Corpuscular Volume 88 fL (80-100); Mean Platelet Volume 10.4 fL (9.1-12.4); Platelet Count 242 K/mm3 (150-400); RDW Coefficient Variation 14.1 % (11.7-14.2); RDW Standard Deviation 45.5 fL (35.1-46.3); Red Blood Cell Count 4.51 M/mm3 (4.30-5.90); White Blood Cell Count 10.35 K/mm3 (4.00-11.30)
[2021-04-11 01:24] LABS: Albumin, Blood 2.9 g/dL (3.4-5.0); Anion Gap 5 mmol/L (6-16); Blood Urea Nitrogen 15 mg/dL (8-24); CO2, Blood 27 mmol/L (21-32); Calcium, Blood 8.6 mg/dL (8.5-10.1); Chloride, Blood 108 mmol/L (98-108); Creatinine, Blood 0.94 mg/dL (0.60-1.20); Glomerular Filtration Rate >60 (60-); Glucose, Blood 85 mg/dL (70-99); Phosphorus, Blood 3.8 mg/dL (2.5-4.9); Sodium, Blood 140 mmol/L (136-145); Troponin I 0.034 ng/mL (0.000-0.040)
--- NOTE | 2021-04-11 01:43 | NUR ---
PTT IS 55.5, PER PHARMACY PROTOCOL, THERE WILL AGAIN BE NO CHANGES IN PATIENTS DOSE OF 15 units/kg/hr or a rate of 18 ml per hour. PTT to be rechecked at 0700.
--- NOTE | 2021-04-11 03:15 | NUR ---
PATIENT HAD NO COMPLAINTS OF CHEST PAIN/PRESSURE OR SOB OVERNIGHT. TELE HAS SHOWN SR WITH FREQUENT PVC'S. STRONG COUGH PRODUCTIVE OF SCANT AMOUNTS OF OSCAR/WHITE SPUTUM. NO CHANGES IN RATE OF HEPARIN GTT OVERNIGHT. NEXT PTT WILL BE AT 0700 PER PHARMACY ORDER.
--- NOTE | 2021-04-11 18:18 | NUR ---
SHIFT SUMMARY: NO ACUTE EVENTS. DENIED CP AND SOB. HAD FIRST HALF OF NUCLEAR STRESS TEST, SECOND HALF SCHEDULED FOR 0730 TOMORROW. NO EVENTS ON TELEMETRY, SR WITH PVC'S 90'S. HEPARIN GTT INFUSING AT 15 UNITS/KG/HR (18 ML/HR BASED ON 60 KG WEIGHT), IS THERAPEUTIC, NEXT PTT TOMORROW MORNING. TOLERATING REGULAR DIET. IS HOPING TO BE D/C'D TOMORROW AFTER STRESS TEST COMPLETE.
[2021-04-12 04:53] LABS: Hematocrit 40.1 % (37.0-53.0); Hemoglobin 13.1 g/dL (13.5-17.5)
--- NOTE | 2021-04-12 06:33 | NUR ---
SHIFT SUMMARY PATIENT ALERT AND ORIENTED. HAD NO COMPLAINT OF PAIN OR SHORTNESS OF BREATH. SLEPT WELL OVERNIGHT. NO ACUTE ISSUES NOTED. IVS PATENT AND FLUSHED. BED IN LOWEST POSITION WITH WHEELS LOCKED AND ALARM ON. CALL LIGHT WITHIN REACH. REPORT GIVEN TO ONCOMING RN.
[2021-04-12] MEDS ORDERED: GUAI600T33 PO (12:30)
[2021-04-12] MEDS ORDERED: CEFU500T30 PO (12:31)
[2021-04-12] MEDS ORDERED: AZIT500 PO (12:31)
--- NOTE | 2021-04-12 15:52 | NUR ---
PATIENT DISCHARGED TO HOME VIA TAXI. BOTH IV SALINE LOCKS REMOVED WITHOUT INCIDENT, TELEMETRY BOX REMOVED. VERBALIZED UNDERSTANDING OF D/C INSTRUCTIONS. OFF UNIT VIA W/C AT 1435. NO BELONGINGS LEFT BEHIND IN ROOM.
== END 2021-04-12 15:00 | disposition home or self-care (01) ==
LOC: ER 00:41 → MEDS 00:42
PROVIDERS: Internal Medicine; Student in an Organized Health Care Education/Training Program; ADMIT Internal Medicine
DX: R07.89 Other chest pain (principal); I73.9 Peripheral vascular disease, unspecified; J44.9 Chronic obstructive pulmonary disease, unspecified; I10 Essential (primary) hypertension; F17.210 Nicotine dependence, cigarettes, uncomplicated; Z86.718 Personal history of other venous thrombosis and embolism; Z79.01 Long term (current) use of anticoagulants; Z89.422 Acquired absence of other left toe(s); Z66 Do not resuscitate; Z79.82 Long term (current) use of aspirin
CPT/HCPCS: 36415; 71045; 71260; 78452; 80048; 80053; 80069; 82550; 84145; 84484; 85014; 85018; 85025; 85027; 85379; 85610; 85730; 93005; 93010; 93017; 93306; 94640; 94760; 96365; 96365-59; 96366; 96366-59; 96367; 96375-59; 96376; 96376-59; 99285-25; A9270; A9500; G0378; J0456; J0696; J1644; J2270; J2785; J7050; Q9967

== ENCOUNTER 2022-06-24 16:24 | Emergency (ER) | payer MEDICARE, OTHER ==
[~2022-06-24] VITALS: Ht 170.2 cm; Wt 61.2 kg
[~2022-06-24 16:24] MED LIST changes: +GUAI600T33 PO; +PRED20 PO
== END 2022-06-24 18:57 | disposition left against medical advice (07) ==
LOC: ER 16:24
DX: S61.211A Laceration without foreign body of left index finger without damage to nail, initial encounter (principal); W26.0XXA Contact with knife, initial encounter; Z79.899 Other long term (current) drug therapy; Z79.01 Long term (current) use of anticoagulants; Z53.21 Procedure and treatment not carried out due to patient leaving prior to being seen by health care provider
CPT/HCPCS: 99281

== ENCOUNTER 2023-01-25 20:33 | Emergency (ER) | payer MEDICARE, OTHER ==
[~2023-01-25] VITALS: Ht 165.1 cm; Wt 63.5 kg
[~2023-01-25 20:33] MED LIST changes: +MECL25 PO
[2023-01-25 20:45] VITALS: BP 125/60
[2023-01-26] MEDS ORDERED: Bactrim Ds Tab1 EACH PO (08:36)
== END 2023-01-25 21:05 | disposition home or self-care (01) ==
LOC: ER 20:33
DX: M79.632 Pain in left forearm (principal); I10 Essential (primary) hypertension; Z86.718 Personal history of other venous thrombosis and embolism; Z88.5 Allergy status to narcotic agent; Z79.01 Long term (current) use of anticoagulants; Z79.899 Other long term (current) drug therapy; Z87.891 Personal history of nicotine dependence
CPT/HCPCS: 99283

== ENCOUNTER 2023-01-26 07:02 | Emergency (ER) | payer MEDICARE, OTHER ==
[~2023-01-26] VITALS: Ht 170.2 cm; Wt 63.5 kg
[2023-01-26 07:16] VITALS: BP 146/83
[2023-01-26] MEDS ORDERED: Bactrim Ds Tab1 EACH PO (08:36)
== END 2023-01-26 08:51 | disposition home or self-care (01) ==
LOC: ER 07:02
DX: L02.414 Cutaneous abscess of left upper limb (principal); I10 Essential (primary) hypertension; Z88.5 Allergy status to narcotic agent; Z79.899 Other long term (current) drug therapy; Z79.01 Long term (current) use of anticoagulants; Z87.891 Personal history of nicotine dependence
CPT/HCPCS: 73090

== ENCOUNTER → 2023-02-10 | Outpatient (CLI) | payer MEDICARE, OTHER | END | disposition home or self-care (01) | LOC: LAB SHORT 08:03 → PLD 08:03 | DX: C44.319 Basal cell carcinoma of skin of other parts of face (principal); L57.0 Actinic keratosis | CPT/HCPCS: 88305 ==

== ENCOUNTER 2023-03-16 01:02 | Emergency (ER) | payer MEDICARE, OTHER ==
[~2023-03-16] VITALS: Ht 170.2 cm; Wt 61.2 kg
[2023-03-16 02:10] VITALS: BP 146/76
== END 2023-03-16 03:25 | disposition home or self-care (01) ==
LOC: ER 01:02
DX: S01.80XA Unspecified open wound of other part of head, initial encounter (principal); Z48.00 Encounter for change or removal of nonsurgical wound dressing; C44.90 Unspecified malignant neoplasm of skin, unspecified; J44.9 Chronic obstructive pulmonary disease, unspecified; I10 Essential (primary) hypertension; Z86.718 Personal history of other venous thrombosis and embolism; Z88.5 Allergy status to narcotic agent; Z79.01 Long term (current) use of anticoagulants; Z79.899 Other long term (current) drug therapy; Z87.891 Personal history of nicotine dependence; W26.8XXA Contact with other sharp object(s), not elsewhere classified, initial encounter
CPT/HCPCS: 99283

== ENCOUNTER → 2023-04-13 | Outpatient (CLI) | payer MEDICARE, OTHER | LOC: LAB SHORT 10:59 → LAB 10:59 | DX: L03.811 Cellulitis of head [any part, except face] (principal) | CPT/HCPCS: 87070; 87077; 87147; 87186; 87205 ==

== ENCOUNTER → 2023-05-11 | Outpatient (CLI) | payer MEDICARE, OTHER | LOC: LAB SHORT 12:36 → PLD 12:36 | DX: L57.0 Actinic keratosis (principal); L28.0 Lichen simplex chronicus | CPT/HCPCS: 88305 ==

== ENCOUNTER 2023-07-24 15:01 | Emergency (ER) | payer MEDICARE, OTHER ==
[~2023-07-24] VITALS: Ht 170.2 cm; Wt 63.5 kg
[2023-07-24 15:29] LABS: BASOPHILS ABSOLUTE AUTO 0.09 K/mm3 (0.00-0.23); BASOPHILS PERCENT AUTO 1 % (0-2); EOSINOPHILS ABSOLUTE AUTO 0.34 K/mm3 (0.00-0.68); EOSINOPHILS PERCENT AUTO 4 % (0-6); Hematocrit 38.3 % (37.0-53.0); IMMATURE GRAN ABSOLUTE AUTO 0.02 K/mm3 (0.00-0.10); IMMATURE GRAN PERCENT AUTO 0 % (0-1); LYMPHOCYTES ABSOLUTE AUTO 1.17 K/mm3 (0.84-5.20); LYMPHOCYTES PERCENT AUTO 14 % (21-46); MONOCYTES ABSOLUTE AUTO 0.97 K/mm3 (0.16-1.47); MONOCYTES PERCENT AUTO 12 % (4-13); Mean Corpuscular HGB 29.6 pg (26.0-34.0); Mean Corpuscular HGB Conc 33.9 g/dL (31.5-36.5); Mean Corpuscular Volume 87 fL (80-100); Mean Platelet Volume 9.6 fL (9.1-12.4); NEUTROPHILS ABSOLUTE AUTO 5.51 K/mm3 (1.96-9.15); NEUTROPHILS PERCENT AUTO 68 % (41-73); Platelet Count 262 K/mm3 (150-400); RDW Coefficient Variation 14.8 % (11.7-14.2); RDW Standard Deviation 47.4 fL (35.1-46.3); Red Blood Cell Count 4.39 M/mm3 (4.30-5.90)
[2023-07-24 15:40] LABS: Albumin, Blood 3.1 g/dL (3.4-5.0); Albumin/Globulin Ratio 0.9 (0.8-1.8); Bilirubin, Total 0.4 mg/dL (0.1-1.0); Calcium, Blood 8.3 mg/dL (8.5-10.1); Creatinine, Blood 0.87 mg/dL (0.60-1.20); Globulin, Blood 3.3 g/dL (2.2-4.0); Potassium, Blood 4.3 mmol/L (3.5-5.5); Total Protein, Blood 6.4 g/dL (6.4-8.2)
[2023-07-24 18:00] VITALS: BP 146/72
== END 2023-07-24 18:13 | disposition home or self-care (01) ==
LOC: ER 15:01
PROVIDERS: Emergency Medicine
DX: R07.9 Chest pain, unspecified (principal); J44.9 Chronic obstructive pulmonary disease, unspecified; I10 Essential (primary) hypertension; Z87.891 Personal history of nicotine dependence; Z88.5 Allergy status to narcotic agent
CPT/HCPCS: 71046; 80053; 83880; 84484; 85025; 93005; 93010; 99285-25; A9270

== ENCOUNTER → 2024-01-03 | Outpatient (CLI) | payer MEDICARE, OTHER | END | disposition home or self-care (01) | LOC: LAB SHORT 07:54 → PLD 07:54 | DX: L57.0 Actinic keratosis (principal) ==

== ENCOUNTER 2024-01-15 16:30 | Emergency (ER) | payer MEDICARE, OTHER ==
[~2024-01-15] VITALS: Ht 170.2 cm; Wt 61.2 kg
[2024-01-15 16:51] LABS: BASOPHILS ABSOLUTE AUTO 0.05 K/mm3 (0.00-0.23); BASOPHILS PERCENT AUTO 1 % (0-2); EOSINOPHILS ABSOLUTE AUTO 0.19 K/mm3 (0.00-0.68); EOSINOPHILS PERCENT AUTO 2 % (0-6); Hematocrit 41.9 % (37.0-53.0); Hemoglobin 14.2 g/dL (13.5-17.5); IMMATURE GRAN ABSOLUTE AUTO 0.03 K/mm3 (0.00-0.10); IMMATURE GRAN PERCENT AUTO 0 % (0-1); LYMPHOCYTES ABSOLUTE AUTO 0.85 K/mm3 (0.84-5.20); LYMPHOCYTES PERCENT AUTO 10 % (21-46); MONOCYTES ABSOLUTE AUTO 0.84 K/mm3 (0.16-1.47); MONOCYTES PERCENT AUTO 10 % (4-13); Mean Corpuscular HGB 28.9 pg (26.0-34.0); Mean Corpuscular HGB Conc 33.9 g/dL (31.5-36.5); Mean Corpuscular Volume 85 fL (80-100); Mean Platelet Volume 9.6 fL (9.1-12.4); NEUTROPHILS ABSOLUTE AUTO 6.81 K/mm3 (1.96-9.15); NEUTROPHILS PERCENT AUTO 78 % (41-73); Platelet Count 262 K/mm3 (150-400); RDW Coefficient Variation 15.5 % (11.7-14.2); RDW Standard Deviation 48.5 fL (35.1-46.3); Red Blood Cell Count 4.92 M/mm3 (4.30-5.90); White Blood Cell Count 8.77 K/mm3 (4.00-11.30)
[2024-01-15 17:13] LABS: Albumin, Blood 3.2 g/dL (3.4-5.0); Albumin/Globulin Ratio 0.9 (0.8-1.8); Bilirubin, Total 0.5 mg/dL (0.1-1.0); Bun/Creatinine Ratio 20.9 (12.0-20.0); Calcium, Blood 8.7 mg/dL (8.5-10.1); Creatinine, Blood 0.77 mg/dL (0.60-1.20); Globulin, Blood 3.4 g/dL (2.2-4.0); Total Protein, Blood 6.6 g/dL (6.4-8.2)
[2024-01-15 17:50] LABS: Source, Urine Clean Catch
[2024-01-15 17:52] LABS: Appearance, Urine Clear (Clear); Bilirubin, Urine Neg (Neg); Blood, Urine Neg (Neg); Color, Urine Yellow (P-Yellow); Glucose Qualitative, Urine 2+ (Neg); Ketones, Urine 1+ (Neg); Leukocyte Esterase, Urine 1+ (Neg); Nitrite, Urine Neg (Neg); Protein, Urine 2+ (Neg); Specific Gravity, Urine 1.025 (1.003-1.022); Urobilinogen, Urine NORM (Normal)
[2024-01-15 18:05] LABS: Bacteria Mod /hpf; Red Blood Cells, Urine 0-2 /hpf (0-2); Squamous Epithelial Cells Rare /hpf (Few)
[2024-01-15 19:00] VITALS: BP 136/77
[2024-01-15] MEDS ORDERED: TOPICAINE 5113 GM TOP (19:18)
== END 2024-01-15 19:30 | disposition home or self-care (01) ==
LOC: ER 16:30
PROVIDERS: Physician Assistant
DX: S39.011A Strain of muscle, fascia and tendon of abdomen, initial encounter (principal); R05.9 Cough, unspecified; I10 Essential (primary) hypertension; J44.9 Chronic obstructive pulmonary disease, unspecified; I73.9 Peripheral vascular disease, unspecified; X58.XXXA Exposure to other specified factors, initial encounter; Z88.5 Allergy status to narcotic agent; Z79.01 Long term (current) use of anticoagulants; Z79.899 Other long term (current) drug therapy; Z87.891 Personal history of nicotine dependence
CPT/HCPCS: 74177; 80053; 81001; 83690; 85025; Q9967

== ENCOUNTER 2024-04-24 00:31 | Emergency (ER) | payer MEDICARE, OTHER ==
[~2024-04-24] VITALS: Ht 172.7 cm; Wt 56.7 kg
[~2024-04-24 00:31] MED LIST changes: +DULERA 200 MCG-13 GM INH; +FURO20 PO; +FURO40 PO; +IPRAT-ALBUT 0.5-3 ML INH; +JARDIANCE10 MG PO; +PANT20 PO; +PRED10 PO; +SPIRIVA RESPIMAT4 G3 INH; +TOPICAINE 5113 GM TOP; +XARELTO10 M1 PO
[2024-04-24] MEDS ORDERED: Albuterol 2.5 MG/3 ML VIAL INH SCH (00:50)
[2024-04-24] MEDS ORDERED: Ondansetron HCl 2 MG / ML 2ML Vial IV ONE (00:55)
[2024-04-24] MEDS ORDERED: Midazolam HCl 1MG / ML 2ML Vial IV ONE (00:55)
[2024-04-24 01:02] LABS: pH Blood Venous 7.22 (7.34-7.37)
[2024-04-24 01:02] LABS: BASOPHILS ABSOLUTE AUTO 0.09 K/mm3 (0.00-0.23); BASOPHILS PERCENT AUTO 1 % (0-2); EOSINOPHILS ABSOLUTE AUTO 0.33 K/mm3 (0.00-0.68); EOSINOPHILS PERCENT AUTO 2 % (0-6); Hematocrit 42.8 % (37.0-53.0); Hemoglobin 13.9 g/dL (13.5-17.5); IMMATURE GRAN ABSOLUTE AUTO 0.11 K/mm3 (0.00-0.10); IMMATURE GRAN PERCENT AUTO 1 % (0-1); LYMPHOCYTES ABSOLUTE AUTO 3.65 K/mm3 (0.84-5.20); LYMPHOCYTES PERCENT AUTO 27 % (21-46); MONOCYTES ABSOLUTE AUTO 1.48 K/mm3 (0.16-1.47); MONOCYTES PERCENT AUTO 11 % (4-13); Mean Corpuscular HGB 29.5 pg (26.0-34.0); Mean Corpuscular HGB Conc 32.5 g/dL (31.5-36.5); Mean Corpuscular Volume 91 fL (80-100); Mean Platelet Volume 10.3 fL (9.1-12.4); NEUTROPHILS ABSOLUTE AUTO 8.08 K/mm3 (1.96-9.15); NEUTROPHILS PERCENT AUTO 59 % (41-73); Platelet Count 342 K/mm3 (150-400); RDW Coefficient Variation 14.9 % (11.7-14.2); RDW Standard Deviation 49.4 fL (35.1-46.3); Red Blood Cell Count 4.71 M/mm3 (4.30-5.90); White Blood Cell Count 13.74 K/mm3 (4.00-11.30)
[2024-04-24 01:03] LABS: Base Excess Venous -5.1 mmol/L; Bicarbonate Venous 19.6 mmol/L (24.0-30.0); PCO2 Venous 56.2 mmHg (38-42)
[2024-04-24] MEDS ORDERED: CefTRIAXone Sodium 1,000 MG in NS 50 ML IV ONE (01:15)
[2024-04-24] MEDS ORDERED: Azithromycin 500 MG in NS 250 ML IV ONE (01:15)
[2024-04-24 01:24] LABS: Albumin/Globulin Ratio 0.9 (0.8-1.8); Bilirubin, Total 0.5 mg/dL (0.1-1.0); Bun/Creatinine Ratio 18.7 (12.0-20.0); Calcium, Blood 8.7 mg/dL (8.5-10.1); Creatinine, Blood 1.23 mg/dL (0.60-1.20); Globulin, Blood 3.4 g/dL (2.2-4.0); Potassium, Blood 4.9 mmol/L (3.5-5.5); Total Protein, Blood 6.4 g/dL (6.4-8.2)
[2024-04-24] MEDS ORDERED: Midazolam HCl 1MG / ML 2ML Vial IV PRN (02:25)
[2024-04-24 02:30] VITALS: BP 88/49
[2024-04-24] MEDS ORDERED: LORazepam 2 MG/ML 1ML Injection IV PRN (03:15)
[2024-04-24] MEDS ORDERED: ALTEPLASE 1 MG/ML IV ONE (03:35)
[2024-04-24 03:51] LABS: Influenza A, PCR NEGATIVE (NEGATIVE); Influenza B, PCR NEGATIVE (NEGATIVE); Resp Syncytial Virus, PCR NEGATIVE (NEGATIVE); SARS-Cov-2 (COVID-19) PCR, MMC NEGATIVE (NEGATIVE)
[2024-04-24 05:22] LABS: International Normalized Ratio 0.96; Prothrombin Time Results 10.3 Sec (9.7-11.5)
[2024-04-24] MEDS ORDERED: EPINEPhrine HCl 0.1 MG/ML 10ML SYR IV ONE (13:45)
[2024-04-24] MEDS ORDERED: Calcium Chloride 10% 10 ML SYR IV ONE (13:45)
[2024-04-24] MEDS ORDERED: Magnesium Sulfate 500 MG / ML 2ML Vial IV ONE (13:45)
[2024-04-24] MEDS ORDERED: Sodium Bicarb 8.4% 50 mEq Syringe IV ONE (13:45)
[2024-04-24] MEDS ORDERED: Atropine Sulfate 0.1 MG/ML 10ML SYR IV ONE (13:45)
== END 2024-04-24 06:04 ==
LOC: ER 00:31 → PCU 00:32 → ER 00:32 → PCU 00:32 → ER 06:04
PROVIDERS: Emergency Medicine; Family Medicine
DX: J96.01 Acute respiratory failure with hypoxia (principal); I21.4 Non-ST elevation (NSTEMI) myocardial infarction; E87.20 Acidosis, unspecified; D72.829 Elevated white blood cell count, unspecified; R65.10 Systemic inflammatory response syndrome (SIRS) of non-infectious origin without acute organ dysfunction; J44.9 Chronic obstructive pulmonary disease, unspecified; I11.0 Hypertensive heart disease with heart failure; I50.30 Unspecified diastolic (congestive) heart failure; E78.5 Hyperlipidemia, unspecified; Z87.891 Personal history of nicotine dependence; Z79.899 Other long term (current) drug therapy; Z88.5 Allergy status to narcotic agent
CPT/HCPCS: 0241U; 31500; 36415; 36556; 71045; 80053; 82803; 83605; 83880; 84145; 84484; 85025; 85379; 85610; 85730; 87040; 92950; 93005; 93010; 94644; 94660; 94664; 96365-59; 96375-59; 96376-59; 99285-25; G0378; J0456; J0461; J0696; J2250; J2405; J3475; J7050